=== PATIENT | male | born 1935 | race Two or more races ===

== ENCOUNTER 2016-07-28 13:24 | Observation (INO) | payer MEDICARE, MEDICAID ==
[2016-07-28] MEDS ORDERED: cefTRIAXone(*) 1 GM in NS 0.9% 50 ML* 50 ML IVPB ONE (14:09)
[2016-07-28] MEDS ORDERED: Acetaminophen TAB* 325 MG PO ONE (14:09)
[2016-07-28 14:21] LABS: Hematocrit 36 % (42-52); Hemoglobin 11.8 g/dl (14.0-18.0); Mean Corpuscular HGB Conc 32 g/dl (31-36); Mean Corpuscular Hemoglobin 27 pg (27-31); Mean Corpuscular Volume 82 fL (80-94); Mean Platelet Volume 8 um3 (7.4-10.4); Red Blood Count 4.43 10^6/ul (4.0-5.4); Red Cell Distribution Width 16 % (10.5-15)
[2016-07-28 14:26] LABS: Urine Bacteria Absent (Absent); Urine Bilirubin Negative (Negative); Urine Glucose Negative (Negative); Urine Nitrite Negative (Negative)
[2016-07-28 14:30] LABS: Albumin 3.8 g/dL (3.2-5.2); BUN/Creatinine Ratio 23.3 (8-20); Calcium 8.8 mg/dL (8.6-10.3); EGFR African American 66.2 (>60); EGFR Non-African American 51.5 (>60); Globulin 4.2 g/dL (2-4); Potassium 4.4 mmol/L (3.5-5.0); Total Bilirubin 0.7 mg/dL (0.2-1.0)
--- NOTE | 2016-07-28 14:30 | RAD ---
INDICATION: Fever and chills COMPARISON: None TECHNIQUE: An AP portable view obtained at 1416 hours is submitted. FINDINGS: Bones/Soft Tissues: There are no acute bony findings. Cardiomediastinal: The cardiomediastinal silhouette is normal. Lungs: There are no infiltrates. There is coarsening of interstitium which may reflect chronic change. There is no focal consolidation Pleura: There is biapical scarring with pleural plaques. Other: None IMPRESSION: CHRONIC LUNG FINDINGS WITH BIAPICAL SCARRING. SUGGEST FOLLOW-UP INDICATED
[2016-07-28 14:33] LABS: Troponin I 0.02 ng/mL (<0.04)
[2016-07-28] MEDS: NS 0.9% 1000 ML* 3,000 ML IV ONE ×3 (14:38→16:15)
[2016-07-28] MEDS ORDERED: NS 0.9% 1000 ML* 1,000 ML IV ONE (16:09)
[2016-07-28] MEDS ORDERED: Acetaminophen TAB* 325 MG PO PRN (16:18)
[2016-07-28] MEDS ORDERED: Ondansetron INJ* 2 MG/ML VIAL IV PRN (16:18)
--- NOTE | 2016-07-28 16:32 | ED ---
Rizwana Patino SooYoung, scribed for Vasyl Diop MD on 07/28/16 at 1354 . Complex/Multi-Sys Presentation - HPI Summary HPI Summary: An 80 y/o M JUAN presents to ED with c/o fever onset approx noon today. Associated sx: vomiting, chills, unable to ambulate. Denies: CP, SOB, sore throat, rhinorrhea, diarrhea. According to his , pt received an injection on his hands for osteoarthritis two days ago. He didn't feel well yesterday but no specific complaints. Pt did get a flu shot. Pt self-catherizes twice a day. Pt is on Coumadin for afib. Dr. Rodriguez is PCP. Micronesian is primary language, is helping translate. NKA. - History Of Current Complaint Chief Complaint: EDGeneral Time Seen by Provider: 07/28/16 13:44 Hx Obtained From: Patient, Family/Commercial Real Estate Sales Manager - Onset/Duration: Gradual Onset, Lasting Hours, Still Present Timing: Constant Severity Currently: Moderate Severity Initially: Moderate Associated Signs And Symptoms: Positive: Weakness, Vomiting, Other - pos: chills ; neg: rhinorrhea. Negative: SOB, Chest Pain, Diarrhea - Allergies/Home Medications Allergies/Adverse Reactions: Allergies Allergy/AdvReac Type Severity Reaction Status Date / Time No Known Allergies Allergy Verified 07/26/16 14:09 Home Medications: Home Medications Brimonidine/Timolol OPTH(NF) [Combigan OPHTH (NF)] 1 drop BOTH EYES DAILY [History Confirmed 07/28/16] Cholecalciferol TAB* [Vitamin D TAB*] 1,000 unit PO DAILY 07/28/16 [History Confirmed 07/28/16] Dexlansoprazole (NF) [Dexilant (NF)] 60 mg PO DAILY 07/28/16 [History Confirmed 07/28/16] Lactulose* 15 ml PO DAILY PRN 07/28/16 [History Confirmed 07/28/16] Levothyroxine TAB* [Synthroid TAB*] 25 mcg PO DAILY 07/28/16 [History Confirmed 07/28/16] Metoprolol Tartrate TAB* [Lopressor TAB*] 25 mg PO BID 07/28/16 [History Confirmed 07/28/16] Ratad-5-Zvop Ethyl Esters (NF) [Lovaza (NF)] 1 cap PO DAILY 07/28/16 [History Confirmed 07/28/16] Simvastatin [Zocor 5 MG-] 10 mg PO DAILY 07/28/16 [History Confirmed 07/28/16] Tamsulosin CAP* [Flomax CAP*] 0.4 mg PO DAILY 07/28/16 [History Confirmed ] PMH/Surg Hx/FS Hx/Imm Hx Previously Healthy: No Cardiovascular History: Reports: Hx Atrial Fibrillation - Cancer History Cancer Type, Location and Year: lymphoma Infectious Disease History: No Infectious Disease History: Denies: Traveled Outside the [place] in Last 30 Days - Social History Occupation: Retired Lives: With Family Alcohol Use: None Substance Use Type: Reports: None Hx Tobacco Use: No Smoking Status (MU): Never Smoked Tobacco Review of Systems Positive: Fever, Chills Negative: Sore Throat, Nasal Discharge Negative: Chest Pain Negative: Shortness Of Breath Positive: Vomiting. Negative: Diarrhea Positive: Weakness - unable to ambulate All Other Systems Reviewed And Are Negative: Yes Physical Exam - Summary Physical Exam Summary: The patient is well-nourished in no acute distress and in no acute pain. Skin: DECREASED TURGOR. NOT DIAPHORETIC, WARM TO TOUCH. HEENT: The head is normocephalic and atraumatic. The pupils are equal and reactive. The conjunctivae are clear and without drainage. Nares are patent. RHINORRHEA. ORAL MUCOSA DRY. Throat is without erythema and exudate. The external ears are intact. The ear canals are patent and without drainage. The tympanic membranes are intact. Neck is supple with full range of motion and non-tender. There are no carotid bruits. There is no neck vein distension. Respiratory: Chest is non-tender. Lungs are clear to auscultation and breath sounds are symmetrical and equal. Cardiovascular: Heart is regular rate and rhythm. There is no murmur or rub auscultated. There is no peripheral edema and pulses are symmetrical and equal. Abdomen: The abdomen is soft and non-tender. There are normal bowel sounds heard in all four quadrants and there is no organomegaly palpated. : CLOUDY, PUS-LIKE, URINE IN CATHETER Musculoskeletal: There is no back pain noted. Extremities are non-tender with full range of motion. 3 SEC CAPILLARY REFILL. There is no peripheral edema or calf tenderness elicited. WEAKNESS. UNABLE TO MAINTAIN SITTING UPRIGHT. Neurological: Patient is alert and oriented to person, place and time. The patient has symmetrical motor strength in all four extremities. Cranial nerves are grossly intact. Deep tendon reflexes are symmetrical and equal in all four extremities. Psychiatric: The patient has an appropriate affect and does not exhibit any anxiety or depression. Triage Information Reviewed: Yes Vital Signs On Initial Exam: Initial Vitals Temp Pulse Resp BP Pulse Ox 100.1 F 80 20 113/73 96 07/28/16 13:48 07/28/16 13:48 07/28/16 13:48 07/28/16 13:48 07/28/16 13:48 Vital Signs Reviewed: Yes Diagnostics - Vital Signs Vital Signs Temp Pulse Resp BP Pulse Ox 07/28/16 13:48 100.1 F 80 20 113/73 96 - Laboratory Lab Results: Lab Results 07/28/16 07/28/16 07/28/16 Range/Units 13:40 13:40 13:40 WBC 13.0 H (3.5-10.8) 10^3/ul RBC 4.43 (4.0-5.4) 10^6/ul Hgb 11.8 L (14.0-18.0) g/dl Hct 36 L (42-52) % MCV 82 (80-94) fL MCH 27 (27-31) pg MCHC 32 (31-36) g/dl RDW 16 H (10.5-15) % Plt Count 166 (150-450) 10^3/ul MPV 8 (7.4-10.4) um3 Neut % (Auto) 76.4 (38-83) % Lymph % (Auto) 13.1 L (25-47) % [place] % (Auto) 10.2 H (1-9) % Eos % (Auto) 0.2 (0-6) % Baso % (Auto) 0.1 (0-2) % Absolute Neuts (auto) 9.9 H (1.5-7.7) 10^3/ul Absolute Lymphs (auto) 1.7 (1.0-4.8) 10^3/ul Absolute Monos (auto) 1.3 H (0-0.8) 10^3/ul Absolute Eos (auto) 0 (0-0.6) 10^3/ul Absolute Basos (auto) 0 (0-0.2) 10^3/ul Absolute Nucleated RBC 0 10^3/ul Nucleated RBC % 0 ESR (0-40) mm/Hr INR (Anticoag Therapy) 2.12 H (0.89-1.11) APTT 30.4 (26.0-36.3) seconds Sodium (133-145) mmol/L Potassium (3.5-5.0) mmol/L Chloride (101-111) mmol/L Carbon Dioxide (22-32) mmol/L Anion Gap (2-11) mmol/L BUN (6-24) mg/dL Creatinine (0.67-1.17) mg/dL Est GFR ( Amer) (>60) Est GFR (Non-Af Amer) (>60) BUN/Creatinine Ratio (8-20) Glucose (70-100) mg/dL Lactic Acid (0.5-2.0) mmol/L Calcium (8.6-10.3) mg/dL Total Bilirubin (0.2-1.0) mg/dL AST (13-39) U/L ALT (7-52) U/L Alkaline Phosphatase (34-104) U/L Troponin I (<0.04) ng/mL B-Natriuretic Peptide ( - 100) pg/mL Total Protein (6.4-8.9) g/dL Albumin (3.2-5.2) g/dL Globulin (2-4) g/dL Albumin/Globulin Ratio (1-3) Urine Color Yellow Urine Appearance Turbid Urine pH 6.0 (5-9) Ur Specific [place] 1.012 (1.010-1.030) Urine Protein 2+(100 mg/dl) H (Negative) Urine Ketones Negative (Negative) Urine Blood 1+ H (Negative) Urine Nitrate Negative (Negative) Urine Bilirubin Negative (Negative) Urine Urobilinogen Negative (Negative) Ur Leukocyte Esterase 3+ H (Negative) Urine WBC (Auto) 3+(>20/hpf) H (Absent) Urine RBC (Auto) 2+(6-10/hpf) H (Absent) Urine Bacteria Absent (Absent) Urine Glucose Negative (Negative) Urine Ascorbic Acid * H (Negative) Influenza A (Rapid) (Negative) Influenza B (Rapid) (Negative) 07/28/16 07/28/16 07/28/16 Range/Units 13:40 13:40 13:40 WBC (3.5-10.8) 10^3/ul RBC (4.0-5.4) 10^6/ul Hgb (14.0-18.0) g/dl Hct (42-52) % MCV (80-94) fL MCH (27-31) pg MCHC (31-36) g/dl RDW (10.5-15) % Plt Count (150-450) 10^3/ul MPV (7.4-10.4) um3 Neut % (Auto) (38-83) % Lymph % (Auto) (25-47) % [place] % (Auto) (1-9) % Eos % (Auto) (0-6) % Baso % (Auto) (0-2) % Absolute Neuts (auto) (1.5-7.7) 10^3/ul Absolute Lymphs (auto) (1.0-4.8) 10^3/ul Absolute Monos (auto) (0-0.8) 10^3/ul Absolute Eos (auto) (0-0.6) 10^3/ul Absolute Basos (auto) (0-0.2) 10^3/ul Absolute Nucleated RBC 10^3/ul Nucleated RBC % ESR (0-40) mm/Hr INR (Anticoag Therapy) (0.89-1.11) APTT (26.0-36.3) seconds Sodium 128 L (133-145) mmol/L Potassium 4.4 (3.5-5.0) mmol/L Chloride 98 L (101-111) mmol/L Carbon Dioxide 25 (22-32) mmol/L Anion Gap 5 (2-11) mmol/L BUN 31 H (6-24) mg/dL Creatinine 1.33 H (0.67-1.17) mg/dL Est GFR ( Amer) 66.2 (>60) Est GFR (Non-Af Amer) 51.5 (>60) BUN/Creatinine Ratio 23.3 H (8-20) Glucose 124 H (70-100) mg/dL Lactic Acid 1.5 (0.5-2.0) mmol/L Calcium 8.8 (8.6-10.3) mg/dL Total Bilirubin 0.70 (0.2-1.0) mg/dL AST 18 (13-39) U/L ALT 16 (7-52) U/L Alkaline Phosphatase 61 (34-104) U/L Troponin I 0.02 (<0.04) ng/mL B-Natriuretic Peptide 318 H ( - 100) pg/mL Total Protein 8.0 (6.4-8.9) g/dL Albumin 3.8 (3.2-5.2) g/dL Globulin 4.2 H (2-4) g/dL Albumin/Globulin Ratio 0.9 L (1-3) Urine Color Urine Appearance Urine pH (5-9) Ur Specific [place] (1.010-1.030) Urine Protein (Negative) Urine Ketones (Negative) Urine Blood (Negative) Urine Nitrate (Negative) Urine Bilirubin (Negative) Urine Urobilinogen (Negative) Ur Leukocyte Esterase (Negative) Urine WBC (Auto) (Absent) Urine RBC (Auto) (Absent) Urine Bacteria (Absent) Urine Glucose (Negative) Urine Ascorbic Acid (Negative) Influenza A (Rapid) (Negative) Influenza B (Rapid) (Negative) 07/28/16 07/28/16 Range/Units 13:40 15:01 WBC (3.5-10.8) 10^3/ul RBC (4.0-5.4) 10^6/ul Hgb (14.0-18.0) g/dl Hct (42-52) % MCV (80-94) fL MCH (27-31) pg MCHC (31-36) g/dl RDW (10.5-15) % Plt Count (150-450) 10^3/ul MPV (7.4-10.4) um3 Neut % (Auto) (38-83) % Lymph % (Auto) (25-47) % [place] % (Auto) (1-9) % Eos % (Auto) (0-6) % Baso % (Auto) (0-2) % Absolute Neuts (auto) (1.5-7.7) 10^3/ul Absolute Lymphs (auto) (1.0-4.8) 10^3/ul Absolute Monos (auto) (0-0.8) 10^3/ul Absolute Eos (auto) (0-0.6) 10^3/ul Absolute Basos (auto) (0-0.2) 10^3/ul Absolute Nucleated RBC 10^3/ul Nucleated RBC % ESR 52 H (0-40) mm/Hr INR (Anticoag Therapy) (0.89-1.11) APTT (26.0-36.3) seconds Sodium (133-145) mmol/L Potassium (3.5-5.0) mmol/L Chloride (101-111) mmol/L Carbon Dioxide (22-32) mmol/L Anion Gap (2-11) mmol/L BUN (6-24) mg/dL Creatinine (0.67-1.17) mg/dL Est GFR ( Amer) (>60) Est GFR (Non-Af Amer) (>60) BUN/Creatinine Ratio (8-20) Glucose (70-100) mg/dL Lactic Acid (0.5-2.0) mmol/L Calcium (8.6-10.3) mg/dL Total Bilirubin (0.2-1.0) mg/dL AST (13-39) U/L ALT (7-52) U/L Alkaline Phosphatase (34-104) U/L Troponin I (<0.04) ng/mL B-Natriuretic Peptide ( - 100) pg/mL Total Protein (6.4-8.9) g/dL Albumin (3.2-5.2) g/dL Globulin (2-4) g/dL Albumin/Globulin Ratio (1-3) Urine Color Urine Appearance Urine pH (5-9) Ur Specific [place] (1.010-1.030) Urine Protein (Negative) Urine Ketones (Negative) Urine Blood (Negative) Urine Nitrate (Negative) Urine Bilirubin (Negative) Urine Urobilinogen (Negative) Ur Leukocyte Esterase (Negative) Urine WBC (Auto) (Absent) Urine RBC (Auto) (Absent) Urine Bacteria (Absent) Urine Glucose (Negative) Urine Ascorbic Acid (Negative) Influenza A (Rapid) Negative (Negative) Influenza B (Rapid) Negative (Negative) Result Diagrams: 07/28/16 13:40 07/28/16 13:40 Lab Statement: Any lab studies that have been ordered have been reviewed, and results considered in the medical decision making process. - Radiology CXR Xray Interpretation: Positive (See Comments) - IMPRESSION: Chronic lung findings with biapical scarring. Suggest f/u as indicated. Radiology Interpretation Completed By: Radiologist - EKG 1 EKG Rhythm: Atrial Fibrillation - with rates less than 100 Re-Evaluation - Re-Evaluation 1 Re-Evaluation Time: 15:06 Change: Unchanged Comment: Discussing results with pt. Second Eval Change: Worse - pt with decreased bp 84/P. will add additional normal saline. Complex Multi-Symp Course/Dx Course Of Treatment: MDM: Pt is a 80 y/o M presenting with fever, chills, vomiting, weakness onset approx noon today. Pt denies SOB, CP. Cloudy urine visible in catheter. UA positive for proteins, blood, WBC, RBC, leukocyte esterase. Trop was negative. CXR showed chronic lung findings with biapical scarring. Influenza A and B are negative. EKG shows afib with rates less than 100. Spoke with hospitalist, will see pt in ED. - Diagnoses Differential Diagnoses/HQI/PQRI: Sepsis, Urinary Tract Infection, Other - pneumonia, influenza, adverse drug reaction Provider Diagnoses: UTI (urinary tract infection), Fever - Physician Notifications Discussed Care Of Patient With: Dr. Coles, hospitalist Time Discussed With Above Provider: 15:14 Instructed by Provider To: Will See In ED Discharge - Discharge Plan Condition: Guarded Disposition: ADMITTED TO [facility] The documentation as recorded by the Rizwana amos SooYoung accurately reflects the service I personally performed and the decisions made by me, Vasyl Diop MD.
[2016-07-28] MEDS ORDERED: Warfarin TAB(*) 5 MG PO SCH (17:00)
--- NOTE | 2016-07-28 19:09 | HP ---
HOSPITAL MEDICINE HISTORY AND PHYSICAL: DATE OF ADMISSION: 07/28/16 PRIMARY CARE PHYSICIAN: Dr. Jean Baptiste. ATTENDING PHYSICIAN: Stuart Coles MD *(dictation provided by Mecca Smith NP) . CHIEF COMPLAINT: Nausea, vomiting, fever. HISTORY OF PRESENT ILLNESS: Mr. De León is an 80-year-old male who has a history of atrial fibrillation, lymphoma, and BPH requiring straight catheterization twice daily who presents today to the hospital with concern for nausea, vomiting, and fever. Mr. De León speaks Tam[place] but is somewhat limited with his primary language being Libyan. His ex- is at the bedside who lives in the same building as him and helps to care for him and she provides much of the information. Per the report, Mr. De León woke up this morning with no complaints. He had breakfast and shortly thereafter, he vomited. His ex- noted that he was shaking and quite cold with concern for rigors. She took his temperature and noted it to be 103. The patient continued to vomit " a lot" and he became very weak and could not walk. At that point, ex- called the emergency medical services that then brought him to the emergency room. Mr. De León states he feels comfortable at this time, but feels tired. He has no complaints. In the emergency room, Mr. De León is found to have urinalysis that was positive with 3+ leuk esterase. He has a white count of 13. His blood pressure is currently running systolically in the 90s with a second liter of IV fluids infusing.. PAST MEDICAL HISTORY: 1. Atrial fibrillation, on warfarin. 2. Lymphoma. 3. BPH, requiring straight catheterization b.i.d. 4. Osteoporosis. MEDICATIONS: 1. Brimonidine/timolol 1 drop both eyes daily. 2. Dexlansoprazole 60 mg p.o. daily. 3. Dutasteride 0.5 mg p.o. daily. 4. Glucosamine/chondroitin 500/400 mg p.o. daily. 5. Lactulose 15 mL p.o. daily p.r.n. 6. Metoprolol tartrate 25 mg p.o. b.i.d. 7. [place]-3 fatty acid 1 cap p.o. daily. 8. Simvastatin 10 mg p.o. daily. 9. Vitamin C 500 mg p.o. daily. 10. Cholecalciferol 1000 units p.o. daily. 11 Levothyroxine 25 mcg p.o. daily. 12. Tamsulosin 0.4 mg daily. 32. Warfarin 2.5 mg, alternating with 5 mg as directed. ALLERGIES: No known drug allergies. FAMILY HISTORY: Reports that the father related to stroke at age 70 and mother at 49 from breast cancer. He has a sister who of breast cancer and a brother who is alive and well at 88. SOCIAL HISTORY: No report of alcohol, tobacco, or drug use. The patient lives alone but his ex- lives in the same building and helps care for him. His son is his healthcare proxy whose name is Liliya De León. REVIEW OF SYSTEMS: A 14-point review of systems was completed with Mr. De León and all those not mentioned above were negative. PHYSICAL EXAMINATION GENERAL: Mr. De León is sitting in the bed, he is in no acute distress. He is calm and cooperative with my examination. VITAL SIGNS: Temperature 100.1, heart rate 83, respiratory rate 19, O2 saturation 93% on room air, blood pressure 97/67. LUNGS: Clear to auscultation bilaterally with no accessory muscle use and good aeration. HEART: S1, S2. No murmurs, rub, or gallop and regular. ABDOMEN: Soft, nontender with bowel sounds positive x4. EXTREMITIES: No cyanosis or edema. NEUROLOGIC: He is alert and oriented x3. There is a small amount language barrier due to his primary language being Libyan but he is able to converse with me today. He moves all extremities equally. There is no facial asymmetry or focal weakness. Extraocular movements are intact. SKIN: Intact. LABORATORY DATA: WBC 13.0, hemoglobin 11.8, hematocrit 36, platelet count 166. INR 2.12. Sodium 128, potassium 4.4, chloride 98, BUN 31, creatinine 1.33 , glucose 124, troponin 0.02. Urine shows 3+ leuk esterase but bacteria at this point absent. Flu swab is negative. Chest x-ray shows no acute process. EKG shows atrial fibrillation with heart rate of 100. ASSESSMENT: Mr. De León is an 80-year-old male with a past medical history of hypertension, atrial fibrillation and benign prostatic hypertrophy requiring straight catheterization who presents today to the hospital with concern for nausea, vomiting, fever, chills, and weakness, found to have a urinary tract infection. Plans are for inpatient status, as I expect his length of stay to be greater than 2 days for the followin. Urinary tract infection: The patient is somewhat hypotensive at this point , but the fluid resuscitation has just begun. The plan will be for him to receive at least 3 L of IV fluid in the emergency room and then go on to receive normal saline as indicated based on clinical course. The patient will have ceftriaxone for antibiotic coverage, pending urinary culture review. The patient's lactic acid is normal. I suspected he has urinary tract infections because of his benign prostatic hypertrophy and likely incomplete voiding. I would recommend that he follow up with Urology. 2. Atrial fibrillation: Plan to continue Coumadin, but will need to hold metoprolol in the setting of hypotension. 3. Hypothyroidism: Continue levothyroxine. 4. Acute kidney injury likely secondary to infection and dehydration. Plan is for IV fluids and repeat labs in the a.m. 5. DVT prophylaxis with Coumadin. 6. Code status: DNR. TIME SPENT: Approximately 60 minutes were spent on the admission of this patient, more than half the time spent with the patient and the ex- at the bedside reviewing the events leading up to this hospitalization, performing the physical examination, and reviewing the plan of care. MECCA SMITH NP CC: Dr. Jean Baptiste * [id number]/CPS #: [id number] JOSE
[2016-07-29] MEDS ORDERED: Melatonin (NF) 3 MG TAB PO PRN (01:25)
[2016-07-29] MEDS: NS 0.9% 1000 ML* 1,000 ML IV SCH ×2 (01:49→09:28)
[2016-07-29 06:24] LABS: Hematocrit 28 % (42-52); Hemoglobin 9.3 g/dl (14.0-18.0); Mean Corpuscular HGB Conc 33 g/dl (31-36); Mean Corpuscular Hemoglobin 27 pg (27-31); Mean Corpuscular Volume 82 fL (80-94); Mean Platelet Volume 9 um3 (7.4-10.4); Red Blood Count 3.38 10^6/ul (4.0-5.4); Red Cell Distribution Width 17 % (10.5-15); White Blood Count 10.7 10^3/ul (3.5-10.8)
[2016-07-29 06:38] LABS: BUN/Creatinine Ratio 21.1 (8-20); Calcium 7.3 mg/dL (8.6-10.3); EGFR African American 79.1 (>60); EGFR Non-African American 61.5 (>60); Potassium 3.6 mmol/L (3.5-5.0)
[2016-07-29] MEDS ORDERED: Levothyroxine TAB* 25 MCG TAB PO SCH (09:00)
[2016-07-29] MEDS ORDERED: Tamsulosin CAP* 0.4 MG PO SCH (09:00)
[2016-07-29] MEDS ORDERED: Warfarin TAB(*) 5 MG PO SCH (09:00)
[2016-07-29] MEDS ORDERED: Cholecalciferol TAB* 1000 UNITS PO SCH (09:00)
[2016-07-29 11:27] VITALS: BP 120/67
--- NOTE | 2016-07-29 11:30 | DCNOTE ---
Subjective Date of Service: 07/29/16 Interval History: Pt states he feels much better today. He is not very consistent in his history. He states he self-catheterizes twice daily, although he was instructed to osman it tid. He states yesterday he voided very frequently after self-catheterization--it is not clear if this is unusual or not. Objective Active Medications: Acetaminophen (Tylenol Tab*) 650 mg PO Q6H PRN PRN Reason: pain/fever Brimonidine/Timolol (Combigan Ophth (Nf)) 1 drop BOTH EYES DAILY [facility] PRN Reason: Protocol Cholecalciferol (Vitamin D Tab*) 1,000 units PO DAILY [facility] Last Admin: 07/29/16 07:07 Dose: 1,000 units Ceftriaxone Sodium 1,000 mg/ (Sodium Chloride) 50 mls @ 200 mls/hr IVPB Q24H [facility] Sodium Chloride (Ns 0.9% 1000 Ml*) 1,000 mls @ 125 mls/hr IV PER RATE [facility] Last Admin: 07/29/16 09:28 Dose: 125 mls/hr Levothyroxine Sodium (Synthroid Tab*) 25 mcg PO DAILY [facility] Last Admin: 07/29/16 07:07 Dose: 25 mcg Melatonin (Melatonin (Nf)) 3 mg PO BEDTIME PRN; Protocol PRN Reason: Sleep Last Admin: 07/29/16 02:32 Dose: 3 mg Ondansetron HCl (Zofran Inj*) 4 mg IV Q6H PRN PRN Reason: NAUSEA Tamsulosin HCl (Flomax Cap*) 0.4 mg PO DAILY [facility] Last Admin: 07/29/16 07:07 Dose: 0.4 mg Warfarin Sodium (Coumadin Tab(*)) 5 mg PO SUMOWESA@0900 [facility] PRN Reason: Protocol Last Admin: 07/29/16 09:50 Dose: 5 mg Warfarin Sodium (Coumadin Tab(*)) 2.5 mg PO TUTHSA@0900 [facility] PRN Reason: Protocol Vital Signs 07/28/16 07/28/16 07/28/16 16:08 16:30 17:00 Temperature Pulse Rate 79 80 Respiratory 18 13 Rate Blood Pressure 93/62 107/87 100/66 (mmHg) O2 Sat by Pulse 95 96 Oximetry 07/28/16 07/28/16 07/28/16 17:35 17:43 19:46 Temperature 97.4 F 97.6 F Pulse Rate 101 77 Respiratory 20 20 16 Rate Blood Pressure 116/59 104/64 (mmHg) O2 Sat by Pulse 95 98 Oximetry 07/28/16 07/28/16 07/28/16 19:49 20:11 23:46 Temperature Pulse Rate 66 73 Respiratory 20 17 Rate Blood Pressure 112/60 129/69 (mmHg) O2 Sat by Pulse 98 100 Oximetry 07/29/16 07/29/16 07:32 07:49 Temperature 98.5 F Pulse Rate 71 Respiratory 16 18 Rate Blood Pressure 105/60 (mmHg) O2 Sat by Pulse 97 Oximetry Oxygen Devices in Use Now: None Appearance: Alert, in a chair. In good spirits. Looks comfortable. Eyes: No Scleral Icterus Ears/Nose/Mouth/Throat: Clear Oropharnyx, Mucous Membranes Moist Neck: NL Appearance and Movements; NL JVP, No Thyroid Enlargement, Masses Respiratory: Symmetrical Chest Expansion and Respiratory Effort, Clear to Auscultation, Clear to Percussion Cardiovascular: NL Sounds; No Murmurs; No JVD, RRR, No Edema, - Extremities: No Edema, No Clubbing, Cyanosis, - Skin: No Rash or Ulcers, No Nodules or Sclerosis, - Neurological: Alert and Oriented x 3, NL Sensation - diminished hearing. No tremor. Result Diagrams: 07/29/16 05:28 07/29/16 05:28 Additional Lab and Data: Lab Results 07/28/16 07/28/16 07/28/16 Range/Units 13:40 13:40 13:40 WBC 13.0 H (3.5-10.8) 10^3/ul RBC 4.43 (4.0-5.4) 10^6/ul Hgb 11.8 L (14.0-18.0) g/dl Hct 36 L (42-52) % MCV 82 (80-94) fL MCH 27 (27-31) pg MCHC 32 (31-36) g/dl RDW 16 H (10.5-15) % Plt Count 166 (150-450) 10^3/ul MPV 8 (7.4-10.4) um3 Neut % (Auto) 76.4 (38-83) % Lymph % (Auto) 13.1 L (25-47) % Chaves % (Auto) 10.2 H (1-9) % Eos % (Auto) 0.2 (0-6) % Baso % (Auto) 0.1 (0-2) % Absolute Neuts (auto) 9.9 H (1.5-7.7) 10^3/ul Absolute Lymphs (auto) 1.7 (1.0-4.8) 10^3/ul Absolute Monos (auto) 1.3 H (0-0.8) 10^3/ul Absolute Eos (auto) 0 (0-0.6) 10^3/ul Absolute Basos (auto) 0 (0-0.2) 10^3/ul Absolute Nucleated RBC 0 10^3/ul Nucleated RBC % 0 ESR (0-40) mm/Hr INR (Anticoag Therapy) 2.12 H (0.89-1.11) APTT 30.4 (26.0-36.3) seconds Sodium (133-145) mmol/L Potassium (3.5-5.0) mmol/L Chloride (101-111) mmol/L Carbon Dioxide (22-32) mmol/L Anion Gap (2-11) mmol/L BUN (6-24) mg/dL Creatinine (0.67-1.17) mg/dL Est GFR ( Amer) (>60) Est GFR (Non-Af Amer) (>60) BUN/Creatinine Ratio (8-20) Glucose (70-100) mg/dL Lactic Acid (0.5-2.0) mmol/L Calcium (8.6-10.3) mg/dL Total Bilirubin (0.2-1.0) mg/dL AST (13-39) U/L ALT (7-52) U/L Alkaline Phosphatase (34-104) U/L Troponin I (<0.04) ng/mL B-Natriuretic Peptide ( - 100) pg/mL Total Protein (6.4-8.9) g/dL Albumin (3.2-5.2) g/dL Globulin (2-4) g/dL Albumin/Globulin Ratio (1-3) Urine Color Yellow Urine Appearance Turbid Urine pH 6.0 (5-9) Ur Specific Valentine 1.012 (1.010-1.030) Urine Protein 2+(100 mg/dl) H (Negative) Urine Ketones Negative (Negative) Urine Blood 1+ H (Negative) Urine Nitrate Negative (Negative) Urine Bilirubin Negative (Negative) Urine Urobilinogen Negative (Negative) Ur Leukocyte Esterase 3+ H (Negative) Urine WBC (Auto) 3+(>20/hpf) H (Absent) Urine RBC (Auto) 2+(6-10/hpf) H (Absent) Urine Bacteria Absent (Absent) Urine Glucose Negative (Negative) Urine Ascorbic Acid * H (Negative) Influenza A (Rapid) (Negative) Influenza B (Rapid) (Negative) 07/28/16 07/28/16 07/28/16 Range/Units 13:40 13:40 13:40 WBC (3.5-10.8) 10^3/ul RBC (4.0-5.4) 10^6/ul Hgb (14.0-18.0) g/dl Hct (42-52) % MCV (80-94) fL MCH (27-31) pg MCHC (31-36) g/dl RDW (10.5-15) % Plt Count (150-450) 10^3/ul MPV (7.4-10.4) um3 Neut % (Auto) (38-83) % Lymph % (Auto) (25-47) % Chaves % (Auto) (1-9) % Eos % (Auto) (0-6) % Baso % (Auto) (0-2) % Absolute Neuts (auto) (1.5-7.7) 10^3/ul Absolute Lymphs (auto) (1.0-4.8) 10^3/ul Absolute Monos (auto) (0-0.8) 10^3/ul Absolute Eos (auto) (0-0.6) 10^3/ul Absolute Basos (auto) (0-0.2) 10^3/ul Absolute Nucleated RBC 10^3/ul Nucleated RBC % ESR (0-40) mm/Hr INR (Anticoag Therapy) (0.89-1.11) APTT (26.0-36.3) seconds Sodium 128 L (133-145) mmol/L Potassium 4.4 (3.5-5.0) mmol/L Chloride 98 L (101-111) mmol/L Carbon Dioxide 25 (22-32) mmol/L Anion Gap 5 (2-11) mmol/L BUN 31 H (6-24) mg/dL Creatinine 1.33 H (0.67-1.17) mg/dL Est GFR ( Amer) 66.2 (>60) Est GFR (Non-Af Amer) 51.5 (>60) BUN/Creatinine Ratio 23.3 H (8-20) Glucose 124 H (70-100) mg/dL Lactic Acid 1.5 (0.5-2.0) mmol/L Calcium 8.8 (8.6-10.3) mg/dL Total Bilirubin 0.70 (0.2-1.0) mg/dL AST 18 (13-39) U/L ALT 16 (7-52) U/L Alkaline Phosphatase 61 (34-104) U/L Troponin I 0.02 (<0.04) ng/mL B-Natriuretic Peptide 318 H ( - 100) pg/mL Total Protein 8.0 (6.4-8.9) g/dL Albumin 3.8 (3.2-5.2) g/dL Globulin 4.2 H (2-4) g/dL Albumin/Globulin Ratio 0.9 L (1-3) Urine Color Urine Appearance Urine pH (5-9) Ur Specific Valentine (1.010-1.030) Urine Protein (Negative) Urine Ketones (Negative) Urine Blood (Negative) Urine Nitrate (Negative) Urine Bilirubin (Negative) Urine Urobilinogen (Negative) Ur Leukocyte Esterase (Negative) Urine WBC (Auto) (Absent) Urine RBC (Auto) (Absent) Urine Bacteria (Absent) Urine Glucose (Negative) Urine Ascorbic Acid (Negative) Influenza A (Rapid) (Negative) Influenza B (Rapid) (Negative) 07/28/16 07/28/16 Range/Units 13:40 15:01 WBC (3.5-10.8) 10^3/ul RBC (4.0-5.4) 10^6/ul Hgb (14.0-18.0) g/dl Hct (42-52) % MCV (80-94) fL MCH (27-31) pg MCHC (31-36) g/dl RDW (10.5-15) % Plt Count (150-450) 10^3/ul MPV (7.4-10.4) um3 Neut % (Auto) (38-83) % Lymph % (Auto) (25-47) % Chaves % (Auto) (1-9) % Eos % (Auto) (0-6) % Baso % (Auto) (0-2) % Absolute Neuts (auto) (1.5-7.7) 10^3/ul Absolute Lymphs (auto) (1.0-4.8) 10^3/ul Absolute Monos (auto) (0-0.8) 10^3/ul Absolute Eos (auto) (0-0.6) 10^3/ul Absolute Basos (auto) (0-0.2) 10^3/ul Absolute Nucleated RBC 10^3/ul Nucleated RBC % ESR 52 H (0-40) mm/Hr INR (Anticoag Therapy) (0.89-1.11) APTT (26.0-36.3) seconds Sodium (133-145) mmol/L Potassium (3.5-5.0) mmol/L Chloride (101-111) mmol/L Carbon Dioxide (22-32) mmol/L Anion Gap (2-11) mmol/L BUN (6-24) mg/dL Creatinine (0.67-1.17) mg/dL Est GFR ( Amer) (>60) Est GFR (Non-Af Amer) (>60) BUN/Creatinine Ratio (8-20) Glucose (70-100) mg/dL Lactic Acid (0.5-2.0) mmol/L Calcium (8.6-10.3) mg/dL Total Bilirubin (0.2-1.0) mg/dL AST (13-39) U/L ALT (7-52) U/L Alkaline Phosphatase (34-104) U/L Troponin I (<0.04) ng/mL B-Natriuretic Peptide ( - 100) pg/mL Total Protein (6.4-8.9) g/dL Albumin (3.2-5.2) g/dL Globulin (2-4) g/dL Albumin/Globulin Ratio (1-3) Urine Color Urine Appearance Urine pH (5-9) Ur Specific Valentine (1.010-1.030) Urine Protein (Negative) Urine Ketones (Negative) Urine Blood (Negative) Urine Nitrate (Negative) Urine Bilirubin (Negative) Urine Urobilinogen (Negative) Ur Leukocyte Esterase (Negative) Urine WBC (Auto) (Absent) Urine RBC (Auto) (Absent) Urine Bacteria (Absent) Urine Glucose (Negative) Urine Ascorbic Acid (Negative) Influenza A (Rapid) Negative (Negative) Influenza B (Rapid) Negative (Negative) Assess/Plan/Problems-Billing Assessment: - Patient Problems (1) UTI (urinary tract infection) Current Visit: Yes Status: Acute Comment: Clinically responding well to cefuroxime. Mcarthur removed this AM. I spoke with his who gave a complete and accurate history of his bladder problem. He always has a high residual often 500 ml,in the doctor's office. He refuses to self-ctheteriz more than bid. D/C with 6 days cefuroxime, referral to Urology. (2) Atrial fibrillation Current Visit: Yes Status: Acute Code(s): I48.91 - UNSPECIFIED ATRIAL FIBRILLATION SNOMED Code(s): 48786599 Comment: Rate controlled. INR 2.35. Repeat INR 3-[address] Jean Baptiste. (3) Hypothyroid Current Visit: Yes Status: Acute Code(s): E03.9 - HYPOTHYROIDISM, UNSPECIFIED SNOMED Code(s): 17127718 Comment: Clinically euthyroid. Continue levothyroxine. Fup Dr. Jones (4) TESS (acute kidney injury) Current Visit: Yes Status: Acute Code(s): N17.9 - ACUTE KIDNEY FAILURE, UNSPECIFIED SNOMED Code(s): 63128323 Comment: Resolved. Status and Disposition: Discharge Fup Dr. Koo, Urology.
[2016-07-29] MEDS ORDERED: cefTRIAXone VIAL(*) 1,000 MG in NS 0.9% 50 ML* 50 ML IVPB SCH (14:00)
--- NOTE | 2016-07-30 02:09 | DS ---
DISCHARGE SUMMARY: DATE OF ADMISSION: DATE OF DISCHARGE: 07/29/16 HISTORY OF PRESENT ILLNESS: This 80-year-old man came complaining of nausea, vomiting, and fever. I am not sure how reliable historian he is. His was not present the morning and had no phone number available to call her. Apparently, his temperature is 103 at home. The patient had a significant amount of emesis, who was found to have a urinary tract infection and dehydration. He was given intravenous fluids and ceftriaxone. He did quite well and felt much better the next day, his acute kidney injury resolved. His white count fell from 13 to 10. He became afebrile. Clinically he looked quite well. Physical therapy saw him and felt he was at his baseline. At home, he will take cefuroxime 500 mg b.i.d. for 6 days. Postvoid residual by bladder scan is pending at this time. This will be noted on the chart when it is available. He has a referral to [facility] and will follow up with Dr. Jean Baptiste. I note that his INR was 2.35. On arrival here we will continue on all his other medications as before. As he is now on an antibiotics we will have him recheck his INR in 3 to 4 days as an outpatient. CC: Dr. Jean Baptiste; Dr. Garcia* [id number]/[facility] #: [id number] MTDD
[2016-07-30] MEDS ORDERED: Brimonidine/Timolol 0.2%/0.5% OPTH(NF) SOL 5 ML BOTH EYES SCH (09:00)
[2016-07-30] MEDS ORDERED: Warfarin TAB(*) 2.5 MG PO SCH ×3 (09:00→17:00)
== END 2016-07-29 13:15 | disposition home or self-care (01) ==
LOC: ED 13:24 → MED 16:05
PROVIDERS: ADMIT Internal Medicine; ATTEND Internal Medicine
DX: N39.0 Urinary tract infection, site not specified (principal); E86.0 Dehydration; I48.91 Unspecified atrial fibrillation; Z79.01 Long term (current) use of anticoagulants; M81.0 Age-related osteoporosis without current pathological fracture; N17.9 Acute kidney failure, unspecified; E03.9 Hypothyroidism, unspecified
CPT/HCPCS: 36415; 71010; 80048; 80053; 81003; 81015; 83605; 83880; 84484; 85025; 85610; 85652; 85730; 87077; 87086; 87186; 87502; 93005; 96365; 96375; 99283; A9270-GY; G0378; G8978-GP-CH; G8979-GP-CH; G8980-GP-CH; J0696

== ENCOUNTER 2017-10-16 14:07 | Inpatient (IN) | payer MEDICARE, MEDICAID ==
[2017-10-16 14:44] LABS: ABS Basophils 0 10^3/ul (0-0.2); ABS Eosinophils 0 10^3/ul (0-0.6); ABS Lymphocytes 1.6 10^3/ul (1.0-4.8); ABS Monocytes 1.1 10^3/ul (0-0.8); ABS Neutrophils 7.2 10^3/ul (1.5-7.7); ABS Nucleated RBC 0 10^3/ul; Eosinophil % 0.4 % (0-6); Hematocrit 30 % (42-52); Hemoglobin 10.4 g/dl (14.0-18.0); Lymphocyte % 15.9 % (25-47); Mean Corpuscular HGB Conc 34 g/dl (31-36); Mean Corpuscular Hemoglobin 29 pg (27-31); Mean Corpuscular Volume 83 fL (80-94); Mean Platelet Volume 7.4 um3 (7.4-10.4); Nucleated Red Blood Cells % 0; Platelet Count 210 10^3/ul (150-450); Red Blood Count 3.65 10^6/ul (4.0-5.4); Red Cell Distribution Width 15 % (10.5-15); White Blood Count 9.9 10^3/ul (3.5-10.8)
[2017-10-16 15:00] LABS: EGFR Non-African American 56.2 (>60)
[2017-10-16 15:40] LABS: Urine Appearance Turbid; Urine Blood 1+ (Negative); Urine Color Yellow; Urine Ketones Negative (Negative); Urine Protein 1+(30 mg/dL) (Negative); Urine Specific Gravity 1.011 (1.010-1.030); Urine Urobilinogen Negative (Negative)
[2017-10-16] MEDS ORDERED: cefTRIAXone(*) 1 GM in NS 0.9% 50 ML* 50 ML IVPB ONE (16:26)
[2017-10-16] MEDS: NS 0.9% 1000 ML* 2,000 ML IV ONE ×2 (16:35→18:23)
[2017-10-16] MEDS ORDERED: Acetaminophen TAB* 325 MG PO ONE (16:41)
[2017-10-16] MEDS ORDERED: Magnesium Sulfate 2 GM IV* 2 GM/50 ML BAG IVPB ONE (16:50)
[2017-10-16] MEDS ORDERED: Lactulose* 15 ML UDC PO PRN (17:11)
--- NOTE | 2017-10-16 17:19 | RAD ---
Indication: Sepsis. Single frontal view of the chest performed at 1653 hours was reviewed. Comparison is made with previous exam dated July 28, 2016. Cardiomegaly is noted. Interstitial edema consistent with vascular congestion is noted. No pleural fluid is identified. IMPRESSION: CARDIOMEGALY WITH INTERSTITIAL EDEMA CONSISTENT WITH VASCULAR CONGESTION.
[2017-10-16] MEDS: Apixaban* 5 MG TAB PO SCH (23:29)
[2017-10-16] MEDS: Cyclosporine 0.05% OPHTH (NF) 0.4 ML VIAL BOTH EYES SCH (23:29)
[2017-10-16] MEDS: PTO:Brimonidine/Timolol 0.2%/0.5% OPTH(NF) SOL 5 ML BOTH EYES SCH (23:29)
[2017-10-16] MEDS: Zolpidem TAB* 5 MG PO PRN (23:31)
--- NOTE | 2017-10-17 00:40 | HP ---
HISTORY AND PHYSICAL: DATE OF ADMISSION: 10/16/17 ADMITTING PROVIDER: Hoang Merrill MD PRIMARY CARE PHYSICIAN: Dr. Jean Baptiste. OUTPATIENT HAND FORMER: Dr. Street. OUTPATIENT HEALTH INSPECTOR FOOD: Dr. Mittal. OUTPATIENT UROLOGIST: Dr. Simmons. CHIEF COMPLAINT: Weakness causing a supported to ground fall. HISTORY OF PRESENT ILLNESS: Rajiv De León is an 81-year-old male PMH of chronic atrial fibrillation on Eliquis; lymphoma approximately 5 years ago, status post treatment; BPH, requiring straight catheterization 3 times daily and intermittent procedures with Dr. Simmons every 3 months, last 2 weeks ago; osteoporosis; moderate aortic stenosis; moderate coronary artery disease, January 2017; recently diagnosed chronic hypoxic respiratory failure with concern for possible pulmonary fibrosis secondary to asbestosis exposure, recently prescribed 2 L nasal cannula by Dr. Mittal. He was in his normal state of health, had been out shopping when he could not open the door and get out of the car unassisted. He was accompanied by his ex- who helped him to the door, but he eventually slumped over and was assisted to the ground. [facility] was called and he was noted to have fevers of 102. He had a urinalysis that was suspicious for a possible urinary tract infections for which he gets frequently. He was referred to hospitalist service for admission by sepsis-2 criteria and after emergency room called Dr. Simmons. He was noted to have an echo-cardiogram approximately [address] Street and is scheduled followup soon, but has not heard any results from that. In the emergency room, he was also intermittently or continuous atrial fibrillation and heart rates max were 114, blood pressures have been preserved. A Mcarthur has been placed and ceftriaxone was started. He was given 2 L of normal saline for sepsis bolus. His lactic acid was normal at 1.2. He was on 4 L satting high 90s. PAST MEDICAL HISTORY: 1. Chronic atrial fibrillation, on Eliquis. 2. Lymphoma, status post treatment approximately 4 to 5 years ago. 3. BPH, requiring straight catheterizations 3 times a day. 4. Osteoporosis. 5. Moderate aortic valve stenosis. 6. Moderate coronary artery disease, no stents, January 2017. 7. recently diagnosed chronic hypoxic respiratory failure, Concern for possible pulmonary fibrosis secondary to asbestosis exposure, who is now being prescribed 2 L nasal cannula by Dr. Mittal within the last month. MEDICATIONS: 1. Amlodipine 2.5 mg daily. 2. Restasis 1 drop both eyes b.i.d. 3. Ambien 5 mg p.o. at bedtime p.r.n. 4. Flomax 0.4 mg p.o. daily. 5. Simvastatin 10 mg p.o. daily. 6. Metoprolol succinate 50 mg p.o. daily. 7. Synthroid 50 mcg p.o. daily. 8. Lactulose 15 mL p.o. daily p.r.n. 9. Glucosamine 1 capsule p.o. daily. 10. Avodart (dutasteride) 0.5 mg p.o. daily. 11. Combigan ophthalmic OM drop both eyes b.i.d. 12. Eliquis 5 mg p.o. daily. 13. Cholecalciferol 1000 units p.o. daily. ALLERGIES: No known drug allergies. FAMILY HISTORY: Father of stroke at age 70. Mother at 49 with breast cancer. Sister of breast cancer. 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 He is accompanied by his ex-, who lives in an apartment across away from his own in the same building. He is a never smoker. He denies significant alcohol use or drug use. His medical surrogate is his son, Tiara De León. REVIEW OF SYSTEMS: A complete 14-point review systems is negative except as per HPI. Denies any chest pain, shortness of breath, abdominal pain, headaches , vision changes, diarrhea, or constipation. He denies any problems with straight catheterizations or dysuria. PHYSICAL EXAMINATION GENERAL APPEARANCE: No acute distress. VITAL SIGNS: T-max 102.3, heart rate ranged between 70s and 114, respiratory rate 20 to 24, satting 98% to 100% on 4 L nasal cannula, blood pressure is 146/ 82. HEENT: Normocephalic, atraumatic. Pupils are equal, round and reactive to light. Extraocular motions intact. No scleral icterus. NECK: Supple. No cervical lymphadenopathy. LUNGS: Slight rhonchi or rales at the right base. No wheezing. CARDIOVASCULAR: Irregularly irregular, rate controlled, 3/6 holosystolic ejection murmur, loudest at the left lower sternal border with blowing quality. No rubs or gallops. ABDOMEN: Soft, nontender, and nondistended. EXTREMITIES: Warm and well perfused. No peripheral edema. NEURO: Cranial nerves II through XII intact. Shake Backboard Notcher strength intact. Sensation is intact. SKIN: No lesion or rashes. LABORATORY DATA: White count 9.9, hemoglobin 10.4, hematocrit 30, platelets 210. Sodium 130, potassium 4.2, chloride 98, carbon dioxide 25, BUN 25, creatinine 1.23, glucose 151, lactic acid 1.2, magnesium 1.7. Total bili 0.5, AST 13, ALT 11, alk phos 42. Troponin 0.01. Albumin 3.5. TSH 1.64. Urinalysis , protein 1+, blood 1+, leukocyte esterase 3+, white count 3+. IMAGING: Chest x-ray demonstrated cardiomegaly with interstitial edema consistent with vascular congestion. EKG with atrial fibrillation, right bundle-branch block, Q-waves inferiorly in II and III. No ST elevations or depressions. T-wave inversions in aVL. ASSESSMENT AND PLAN: Rajiv De León is an 81-year-old male with past medical history of chronic atrial fibrillation, on Eliquis; moderate aortic stenosis in January 2017; benign prostatic hyperplasia, requiring 3 times daily straight catheterizations with history of urinary tract infections, who is admitted with fevers of 102, intermittent tachycardia (related to atrial fibrillation), and generalized weakness resulting in assisted fall. He also has hypoxic respiratory failure developing over the last month, follows up with Dr. Mittal, concern for pulmonary fibrosis or asbestosis. He had a CT chest just 10 days ago, which showed stable nodules 12-mm in the right upper lobe and 7-mm in the right medial lobe. Dr. Simmons was consulted by the ED and recommended admission. Ceftriaxone was started and we will continue that. We will follow up with the urine culture, followed up blood cultures. He meets sepsis by sepsis-2 criteria, but not sepsis-3 criteria. I am concerned about his worsening shortness of breath and in comparison on review his med and records, his echocardiogram showed worsening aortic valve area of 1.0 (Jan 2017) from 2.1 (March 2016). I am concerned his aortic stenosis may now have worsened further. A BNP was added. His chest x-ray did show evidence of pulmonary vascular congestion and had some slight rales at the right lower base. Consideration for small doses of Lasix, I am going to hold off for now. I am going to continue his Eliquis 5 mg p.o. b.i.d., status post sepsis bolus in the emergency room and continue his metoprolol succinate 50 mg p.o. daily for rate control. His blood pressures are preserved. I will continue his Flomax and Avodart (if on formulary). Continue his Ambien. I gave him 2 g of magnesium and keep his potassium also above 4. He slumps with a slight hyponatremia may be related to a volume overload. I will get BMP and mag daily along with CBC. He has no lactic acidosis. He desires to be a DNR. His medical surrogate is his son, Tiara De León. He is being admitted as inpatient status. [id number]/[facility] #: [id number] MTDD
[2017-10-17] MEDS: Levothyroxine TAB* 50 MCG TAB PO SCH (05:35)
[2017-10-17 05:47] LABS: Hematocrit 31 % (42-52); Hemoglobin 10.2 g/dl (14.0-18.0); Mean Corpuscular HGB Conc 34 g/dl (31-36); Mean Corpuscular Hemoglobin 28 pg (27-31); Mean Corpuscular Volume 83 fL (80-94); Mean Platelet Volume 7.6 um3 (7.4-10.4); Platelet Count 201 10^3/ul (150-450); Red Blood Count 3.66 10^6/ul (4.0-5.4); Red Cell Distribution Width 15 % (10.5-15); White Blood Count 15.2 10^3/ul (3.5-10.8)
[2017-10-17 06:09] LABS: Monocytes % 9 % (0-7)
[2017-10-17] MEDS ORDERED: Potassium Chlor TAB* 20 MEQ TAB.ER PO ONE (08:16)
[2017-10-17] MEDS: Finasteride TAB* 5 MG PO SCH (08:37)
[2017-10-17] MEDS: Cholecalciferol TAB* 1000 UNITS PO SCH (08:37)
[2017-10-17] MEDS: Apixaban* 5 MG TAB PO SCH ×2 (08:37→20:42)
[2017-10-17] MEDS: Tamsulosin CAP* 0.4 MG PO SCH (08:37)
[2017-10-17] MEDS: Metoprolol Succinate XL TAB* 50 MG PO SCH (08:37)
[2017-10-17] MEDS: Cyclosporine 0.05% OPHTH (NF) 0.4 ML VIAL BOTH EYES SCH (09:16)
[2017-10-17] MEDS: GLUCOSAMINE PO SCH (09:16)
[2017-10-17] MEDS: PTO:Brimonidine/Timolol 0.2%/0.5% OPTH(NF) SOL 5 ML BOTH EYES SCH ×2 (09:16→20:42)
--- NOTE | 2017-10-17 12:47 | ECHO ---
Patient: YAMINI AMBROSE [facility] Rec#: [id number] : 1935 Date: 10/17/2017 Age: 81y Height: 167.64 cm / 66.0 in Weight: 70.76 kg / 156.0 lbs Sex: M BSA: 1.8 Room#: 432 Admit Date#: 10/16/2017 Type: Inpatient Referring: Hoang Merrill Reading: Kuldip Rubin MD Supervisor Floor Assembly: Do Case RDCS CC: Lucio Street CC: Nini Jean Baptiste MD Transthoracic Echocardiogram Indication: Aortic Stenosis BP: 101/58 HR: 71 Rhythm: NSR with PACs Findings History: A-fib,lymphoma with prior treatment,BPH,,CAD,3/6 holosystolic murmur. Technical Comments: The study is technically limited due to patient body habitus. Completed at 1040. Left Ventricle: The left ventricular chamber size is normal. Septal wall hypertrophy is observed. Global left ventricular wall motion and contractility are within normal limits. There is normal left ventricular systolic function. The estimated ejection fraction is 55-60%. The assessment of diastolic function is non-diagnostic. Left Atrium: The left atrium is moderate to severely dilated. Right Ventricle: The right ventricular cavity size is normal. The right ventricular global systolic function is normal. Right Atrium: The right atrium is moderate to severely dilated. Aortic Valve: The aortic valve is trileaflet. The aortic valve leaflets are moderately thickened. Systolic excursion of the aortic valve cusps is reduced. Moderate aortic cusp sclerosis is present. There is no evidence of aortic regurgitation. There is moderate aortic stenosis. Highest aortic valve velocity was acquired with Pedoff in apical position. Mitral Valve: There is anterior mitral annular calcification. The mitral valve leaflets are severely thickened. There is mild to moderate mitral regurgitation. There is no evidence of mitral stenosis. The mitral valve area, by pressure half time, is calculated at 3.2 cm2. Tricuspid Valve: The tricuspid valve leaflets are normal. There is mild to moderate tricuspid regurgitation. There is evidence of moderate pulmonary hypertension. Pulmonic Valve: The pulmonic valve appears normal. There is no evidence of pulmonic regurgitation. There is no pulmonic stenosis. Pericardium: There is no significant pericardial effusion. A pericardial fat pad is visualized. Aorta: There is no dilatation of the ascending aorta. The aortic arch is not well visualized. There is no dilation of the aortic root. Pulmonary Artery: The main pulmonary artery is not well visualized. Venous: The inferior vena cava appears normal in size. There is an approximate 50% respiratory change in the inferior vena cava dimension. Conclusions There is normal left ventricular systolic function. The estimated ejection fraction is 55-60%. Global left ventricular wall motion and contractility are within normal limits. The left ventricular chamber size is normal. The left atrium is moderate to severely dilated. The right atrium is moderate to severely dilated. There is moderate aortic stenosis. There is mild to moderate mitral regurgitation. There is mild to moderate tricuspid regurgitation. There is evidence of moderate pulmonary hypertension. There is no prior echocardiogram available to compare with at this time. Measurements Name Value Normal Range RVIDd (AP) 2D 3.4 cm (0.9 - 2.6) RVDdMajor (2D) 4.1 cm (2.2 - 4.4) RAd ISD 4CH 6.5 cm (3.4 - 4.9) RA (A4C)W 5 cm (2.9 - 4.6) IVSd (2D) 1.2 cm (0.6 - 1) LVPWd (2D) 1 cm (0.6 - 1) LVIDd (2D) 4.8 cm (3.6 - 5.4) LVIDs (2D) 3 cm - LV FS (2D) 37 % (25 - 45) Aortic Annulus 1.7 cm (1.4 - 2.6) Ao root diameter (2D) 3.2 cm (2.1 - 3.5) Ascending Ao 3.1 cm (2.1 - 3.4) LA dimension (AP) 2D 5.2 cm (2.3 - 3.8) Name Value Normal Range MV E-wave Vmax 2.1 m/sec - MV deceleration time 254 msec - MV A-wave Vmax 1.1 m/sec - MV E:A ratio 1.85 ratio - LV septal e' Vmax 0.05 m/sec - LV lateral e' Vmax 0.05 m/sec - LV E:e' septal ratio 42 ratio - LV E:e' lateral ratio 42 ratio - Name Value Normal Range AV Vmax 3.8 m/sec - AV VTI 76.3 cm - AV peak gradient 58.9 mmHg - AV mean gradient 28.6 mmHg - LVOT diameter 1.8 cm - LVOT Vmax 1.2 m/sec - LVOT VTI 29.2 cm - LVOT peak gradient 6.19 mmHg - LVOT mean gradient 3.02 mmHg - SV LVOT 74 ml - KHURRAM (continuity VTI) 1 cm2 - Name Value Normal Range MV Vmax 2.1 m/sec - MV VTI 60.5 cm - MV peak gradient 17.67 mmHg - MV mean gradient 3.92 mmHg - MV PHT 68 msec - MR Vmax 3.3 m/sec - MR VTI 106.4 cm - MVA (PHT) 3.2 cm2 - MVA (continuity VTI) 1.2 cm2 - Name Value Normal Range TR Vmax 3.4 m/sec - TR peak gradient 45 mmHg - RAP 8 mmHg - RVSP 53 mmHg - IVC diameter 2 cm - Name Value Normal Range PV Vmax 1 m/sec - PV peak gradient 3.91 mmHg -
[2017-10-17] MEDS ORDERED: cefTRIAXone(*) 1 GM in NS 0.9% 50 ML* 50 ML IVPB SCH (16:00)
[2017-10-17] MEDS: Atorvastatin* 10 MG TAB PO SCH (17:06)
--- NOTE | 2017-10-17 18:44 | PN ---
Subjective Date of Service: 10/17/17 Interval History: ECHO with moderate(stable) ; EF 55-60% Klebsiella on UCX >100K Afebrile. HDS. Leukocytosis worse. worked with PT. 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 Objective Active Medications: Apixaban (Eliquis*) 5 mg PO BID [facility] Last Admin: 10/17/17 08:37 Dose: 5 mg Atorvastatin Calcium (Lipitor*) 5 mg PO 1700 [facility] Last Admin: 10/17/17 17:06 Dose: 5 mg Brimonidine/Timolol (Combigan Ophth (Nf)) 1 drop BOTH EYES BID DEA PRN Reason: Protocol Last Admin: 10/17/17 09:16 Dose: Not Given Cholecalciferol (Vitamin D Tab*) 1,000 units PO DAILY [facility] Last Admin: 10/17/17 08:37 Dose: 1,000 units Cyclosporine (Restasis 0.05% Ophth) 1 drop BOTH EYES BID DEA PRN Reason: Protocol Finasteride (Proscar Tab*) 5 mg PO DAILY DEA PRN Reason: Protocol Last Admin: 10/17/17 08:37 Dose: 5 mg Glucosamine Sulfate (Glucosamine Cap (Nf)) 1 cap PO DAILY DEA PRN Reason: Protocol Last Admin: 10/17/17 09:16 Dose: Not Given Ceftriaxone Sodium 1 gm/ (Sodium Chloride) 50 mls @ 200 mls/hr IVPB Q24H [facility] Last Admin: 10/17/17 16:12 Dose: 200 mls/hr Lactulose (Lactulose*) 15 ml PO DAILY PRN PRN Reason: CONSTIPATION Levothyroxine Sodium (Synthroid Tab*) 50 mcg PO 0600 [facility] Last Admin: 10/17/17 05:35 Dose: 50 mcg Metoprolol Succinate (Toprol Xl Tab*) 50 mg PO DAILY [facility] Last Admin: 10/17/17 08:37 Dose: 50 mg Tamsulosin HCl (Flomax Cap*) 0.4 mg PO DAILY [facility] Last Admin: 10/17/17 08:37 Dose: 0.4 mg Zolpidem Tartrate (Ambien Tab*) 5 mg PO BEDTIME PRN PRN Reason: SLEEP Last Admin: 10/16/17 23:31 Dose: 5 mg Vital Signs - 8 hr 10/17/17 10/17/17 11:19 15:48 Temperature 98.2 F 98.7 F Pulse Rate 76 69 Respiratory 16 24 Rate Blood Pressure 106/53 119/57 (mmHg) O2 Sat by Pulse 96 96 Oximetry Oxygen Devices in Use Now: Nasal Cannula Appearance: NAD, tired appearing. Eyes: No Scleral Icterus, PERRLA Ears/Nose/Mouth/Throat: NL Teeth, Lips, Gums, Mucous Membranes Moist Neck: NL Appearance and Movements; NL JVP Respiratory: Symmetrical Chest Expansion and Respiratory Effort, Clear to Auscultation Cardiovascular: RRR, - - 3/6 DOMINIQUE, s1 s2. Abdominal: NL Sounds; No Tenderness; No Distention Extremities: No Edema, No Clubbing, Cyanosis Skin: No Rash or Ulcers Neurological: Alert and Oriented x 3 Nutrition: Taking PO's Result Diagrams: 10/17/17 05:25 10/17/17 05:25 Additional Lab and Data: Laboratory Results - last 24 hr 10/17/17 10/17/17 05:25 05:25 WBC 15.2 H RBC 3.66 L Hgb 10.2 L Hct 31 L MCV 83 MCH 28 MCHC 34 RDW 15 Plt Count 201 MPV 7.6 Neut % (Auto) Not Reportable Lymph % (Auto) Not Reportable [place] % (Auto) Not Reportable Eos % (Auto) Not Reportable Baso % (Auto) Not Reportable Absolute Neuts (auto) Not Reportable Absolute Lymphs (auto) Not Reportable Absolute Monos (auto) Not Reportable Absolute Eos (auto) Not Reportable Absolute Basos (auto) Not Reportable Absolute Nucleated RBC Not Reportable Immature Gran % 3 Neutrophils % 80 Band Neutrophils % 2 Lymphocytes % 8 L Monocytes % 9 H Eosinophils % 0 Basophils % 0 Myelocytes % 1 Nucleated RBC % Not Reportable Abs Neuts (Manual) 12.2 H Abs Lymphs (Manual) 1.2 Abs Monocytes (Manual) 1.4 H Absolute Eos (Manual) 0 Abs Basophils (Manual) 0 Toxic Granulation 1+ Normal RBC Morphology Normal Sodium 129 L Potassium 3.8 Chloride 103 Carbon Dioxide 23 Anion Gap 3 BUN 18 Creatinine 1.03 Est GFR ( Amer) 88.7 Est GFR (Non-Af Amer) 69.0 BUN/Creatinine Ratio 17.5 Glucose 126 H Calcium 8.3 L Magnesium 2.1 Assess/Plan/Problems-Billing Assessment: 81 yo [place]an speaking male PMH moderate , recent chronic hypoxic respiratory failure thought 2/2 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 CFTX -> Zosyn. - Patient Problems (1) UTI (urinary tract infection) Current Visit: No Status: Acute Comment: has been self cathing TID and getting intermittent procedures with Dr. Simmons. Mcarthur placed in ED. Started empiricaly on CFTX but Klebsiella pna on UCx which can have inducible beta-lactam resistance. Also WBC up. Switched to zosyn. f/u sensitivities. (2) Aortic stenosis Current Visit: Yes Status: Acute Code(s): I35.0 - NONRHEUMATIC AORTIC (VALVE ) STENOSIS SNOMED Code(s): 39173729 Comment: still rated as moderate on ECHO here. (3) CHF (congestive heart failure) Current Visit: Yes Status: Acute Code(s): I50.9 - HEART FAILURE, UNSPECIFIED SNOMED Code(s): 28553303 Comment: did get some IVF bolus in ED. BNP 541. EF 55-60% , mild-mod mVR, TVT. mod pHTN started lasix 20mg po daily for likely few days. (4) Hyponatremia Current Visit: Yes Status: Acute Code(s): E87.1 - HYPO-OSMOLALITY AND HYPONATREMIA SNOMED Code(s): 86879386 Comment: chronically ~130 range it seems. tsh wnl. Uosm, Valery, FeNa, uric acid , cortisol pending BMP daily. (5) Physical deconditioning Current Visit: Yes Status: Acute Code(s): R53.81 - OTHER MALAISE SNOMED Code(s): 29095453420473 Comment: continue PT. (6) Atrial fibrillation Current Visit: No Status: Acute Code(s): I48.91 - UNSPECIFIED ATRIAL FIBRILLATION SNOMED Code(s): 80323800 Comment: Rate controlled. on Eliquis. metoprolol 50 daily. (7) Hypothyroid Current Visit: No Status: Acute Code(s): E03.9 - HYPOTHYROIDISM, UNSPECIFIED SNOMED Code(s): 89294749 Comment: Clinically euthyroid. Continue levothyroxine. Status and Disposition: medicine inpatient.
--- NOTE | 2017-10-17 19:03 | ED ---
Theodora Patino Gabriel, scribed for Anshu Cueto MD on 10/16/17 at 1508 . Complex/Multi-Sys Presentation - HPI Summary HPI Summary: This patient is a 81 year old M BIBA to [facility] accompanied by his with a chief complaint of weakness that began mid-day today. Pts states while they were shopping today he was unable to walk to the store due to the weakness. The patient rates the pain 0/10 in severity. Patient reports fever of 102F, trouble ambulating, and trouble urinating. Patient denies cough, n/v/d, and back pain. The patient catheterizes himself 3 times a day to urinate. Pt has just seen Dr. Simmons for prostate issues. - History Of Current Complaint Chief Complaint: EDWeakness Time Seen by Provider: 10/16/17 14:15 Hx Obtained From: Patient Onset/Duration: Lasting Hours, Still Present Timing: Constant Severity Currently: Moderate Severity Initially: Moderate Associated Signs And Symptoms: Positive: Other - fever of 102F, weakness, trouble ambulating, and trouble urinating. - Allergies/Home Medications Allergies/Adverse Reactions: Allergies Allergy/AdvReac Type Severity Reaction Status Date / Time No Known Allergies Allergy Verified 07/26/16 14:09 Home Medications: Home Medications Apixaban* [Eliquis*] 5 mg PO BID 10/16/17 [History Confirmed 10/16/17] Cyclosporine 0.05% OPHTH (NF) [Restasis 0.05% OPHTH] 1 drop BOTH EYES BID [History Confirmed 10/16/17] Dutasteride (NF) [Avodart (NF)] 0.5 mg PO DAILY 10/16/17 [History Confirmed ] Glucosamine CAP (NF) 1 cap PO DAILY 10/16/17 [History Confirmed 10/16/17] Metoprolol Succinate XL TAB* [Toprol XL TAB*] 50 mg PO DAILY 10/16/17 [History Confirmed 10/16/17] Simvastatin TAB(NF) [Zocor(NF)] 10 mg PO DAILY 10/16/17 [History Confirmed 10/16] Zolpidem TAB* [Ambien TAB*] 5 mg PO BEDTIME PRN 10/16/17 [History Confirmed ] amLODIPine TAB* [Norvasc 5 mg TAB*] 2.5 mg PO DAILY 10/16/17 [History Confirmed 10/16/17] PMH/Surg Hx/FS Hx/Imm Hx Cardiovascular History: Reports: Hx Atrial Fibrillation, Hx Hypertension Respiratory History: Denies: Hx Pleural Effusion GI History: Denies: Hx Gastrointestinal Bleed History: Reports: Hx Benign Prostatic Hyperplasia Musculoskeletal History: Reports: Hx Arthritis Sensory History: Reports: Hx Glaucoma Opthamlomology History: Reports: Hx Glaucoma - Cancer History Cancer Type, Location and Year: lymphoma Hx Chemotherapy: Yes - 2013 Hx Radiation Therapy: Yes - 2013 - Surgical History Surgery Procedure, Year, and Place: 2013 R testicle removed Infectious Disease History: No Infectious Disease History: Denies: Traveled Outside the [place] in Last 30 Days - Family History Known Family History: Positive: Hypertension Negative: Respiratory Disease, Seizure Disorder - Social History Occupation: Retired Lives: With Family Alcohol Use: None Substance Use Type: Reports: None Hx Tobacco Use: No Smoking Status (MU): Never Smoked Tobacco Review of Systems Positive: Fever, Other - trouble ambulating . Negative: Chills Negative: Erythema Negative: Sore Throat Negative: Chest Pain Negative: Shortness Of Breath, Cough Negative: Abdominal Pain, Vomiting, Diarrhea, Nausea Genitourinary: Other - trouble urinating Negative: dysuria, hematuria Musculoskeletal: Negative - back pain Negative: Myalgia, Edema Negative: Rash Neurological: Negative - dizziness Positive: Weakness All Other Systems Reviewed And Are Negative: Yes Physical Exam - Summary Physical Exam Summary: Constitutional: Well-developed, Well-nourished, Alert. (-) Distressed, ill appearing Skin: Warm, Dry HENT: Normocephalic; Atraumatic Eyes: Conjunctiva normal Neck: Musculoskeletal ROM normal neck. (-) JVD, (-) Stridor, (-) Tracheal deviation Cardio: Rhythm regular, rate normal, Heart sounds normal; Intact distal pulses; The pedal pulses are 2+ and symmetric. Radial pulses are 2+ and symmetric. Grade 3 systolic murmur Pulmonary/Chest wall: Effort normal. (-) Respiratory distress, (-) Wheezes, (-) Rales Abd: Soft, (-) Tenderness, (-) Distension, (-) Guarding, (-) Rebound Musculoskeletal: (-) Edema Lymph: (-) Cervical adenopathy Neuro: Alert, Oriented x3 Psych: Mood and affect Normal Triage Information Reviewed: Yes Vital Signs On Initial Exam: Initial Vitals Temp Pulse Resp BP Pulse Ox 100.4 F 114 24 146/82 98 10/16/17 14:10 10/16/17 14:10 10/16/17 14:10 10/16/17 14:10 10/16/17 14:10 Vital Signs Reviewed: Yes Diagnostics - Vital Signs Vital Signs Temp Pulse Resp BP Pulse Ox 10/16/17 14:37 102.3 F 97 24 146/82 99 10/16/17 14:10 100.4 F 114 24 146/82 98 - Laboratory Lab Results: Lab Results 10/16/17 10/16/17 10/16/17 Range/Units 14:31 14:31 14:31 WBC 9.9 (3.5-10.8) 10^3/ul RBC 3.65 L (4.0-5.4) 10^6/ul Hgb 10.4 L (14.0-18.0) g/dl Hct 30 L (42-52) % MCV 83 (80-94) fL MCH 29 (27-31) pg MCHC 34 (31-36) g/dl RDW 15 (10.5-15) % Plt Count 210 (150-450) 10^3/ul MPV 7.4 (7.4-10.4) um3 Neut % (Auto) 72.9 (38-83) % Lymph % (Auto) 15.9 L (25-47) % [place] % (Auto) 10.6 H (0-7) % Eos % (Auto) 0.4 (0-6) % Baso % (Auto) 0.2 (0-2) % Absolute Neuts (auto) 7.2 (1.5-7.7) 10^3/ul Absolute Lymphs (auto) 1.6 (1.0-4.8) 10^3/ul Absolute Monos (auto) 1.1 H (0-0.8) 10^3/ul Absolute Eos (auto) 0 (0-0.6) 10^3/ul Absolute Basos (auto) 0 (0-0.2) 10^3/ul Absolute Nucleated RBC 0 10^3/ul Nucleated RBC % 0 Sodium 130 L (139-145) mmol/L Potassium 4.2 (3.5-5.0) mmol/L Chloride 98 L (101-111) mmol/L Carbon Dioxide 25 (22-32) mmol/L Anion Gap 7 (2-11) mmol/L BUN 25 H (6-24) mg/dL Creatinine 1.23 H (0.67-1.17) mg/dL Est GFR ( Amer) 72.3 (>60) Est GFR (Non-Af Amer) 56.2 (>60) BUN/Creatinine Ratio 20.3 H (8-20) Glucose 151 H (70-100) mg/dL Lactic Acid 1.2 (0.5-2.0) mmol/L Calcium 8.5 L (8.6-10.3) mg/dL Magnesium 1.7 L (1.9-2.7) mg/dL Total Bilirubin 0.50 (0.2-1.0) mg/dL AST 13 (13-39) U/L ALT 11 (7-52) U/L Alkaline Phosphatase 42 (34-104) U/L Troponin I 0.01 (<0.04) ng/mL Total Protein 7.0 (6.4-8.9) g/dL Albumin 3.5 (3.2-5.2) g/dL Globulin 3.5 (2-4) g/dL Albumin/Globulin Ratio 1.0 (1-3) TSH Pending Result Diagrams: 10/16/17 14:31 10/16/17 14:31 Lab Statement: Any lab studies that have been ordered have been reviewed, and results considered in the medical decision making process. - EKG 14:47 Cardiac Rate: Other Rate EKG Rhythm: Atrial Fibrillation - at 91 BPM EKG Interpretation: No STEMI Complex Multi-Symp Course/Dx Assessment/Plan: This patient is a 81 year old M BIBA to [facility] accompanied by his with a chief complaint of weakness that began mid-day today. Pts states while they were shopping today he was unable to walk to the store due to the weakness. The patient rates the pain 0/10 in severity. Patient reports fever of 102F, trouble ambulating, and trouble urinating. Patient denies cough, n/v/d, and back pain. The patient catheterizes himself 3 times a day to urinate. Pt has just seen Dr. Simmons for prostate issues. An EKG reveals afib, no STEMI. Test results with no significant abnormalities. UA was positive for UTI. In the ED course the patient was given abx, Tylenol, and IV fluids. 1630 We discussed patient care with Dr. Simmons and they recommended admitting the patient. Patient will be admitted. The patient is agreeable with this plan. - Diagnoses Differential Diagnoses/HQI/PQRI: Urinary Tract Infection, Other - PNA Provider Diagnoses: Prostatitis, Urinary retention, Sepsis - Physician Notifications Discussed Care Of Patient With: Hoang Merrill Time Discussed With Above Provider: 16:41 Instructed by Provider To: Admit As Inpatient Discharge - Sign-Out/Discharge Documenting (check all that apply): Discharge/Admit/Transfer - admitted - Discharge Plan Condition: Fair Disposition: ADMITTED TO [facility] Referrals: Nini Jean Baptiste MD [Primary Care Provider] - The documentation as recorded by the Theodora amos Gabriel accurately reflects the service I personally performed and the decisions made by , Anshu Cueto MD.
[2017-10-17] MEDS: PTO:Cyclosporine 0.05% OPHTH (NF) 0.4 ML VIAL BOTH EYES SCH (20:42)
[2017-10-17] MEDS ORDERED: Zosyn per Pharmacy* NOTE FOLLOW UP SCH (22:00)
[2017-10-17] MEDS ORDERED: Piperacillin/Tazobac ADVAN(*) 3.375 GM in NS 0.9% 100 ML* 100 ML IVPB ONE (22:15)
[2017-10-17] MEDS: Furosemide TAB* 20 MG PO SCH (22:47)
[2017-10-18] MEDS: ZOSYN 3.375 GM Q8H per EXTENDED INFUSION IVPB SCH ×6 (04:22→18:03)
[2017-10-18 05:25] LABS: ABS Basophils 0 10^3/ul (0-0.2); ABS Eosinophils 0.1 10^3/ul (0-0.6); ABS Monocytes 1.4 10^3/ul (0-0.8); ABS Nucleated RBC 0 10^3/ul; Eosinophil % 0.7 % (0-6); Hematocrit 29 % (42-52); Hemoglobin 9.6 g/dl (14.0-18.0); Lymphocyte % 17.6 % (25-47); Mean Corpuscular HGB Conc 34 g/dl (31-36); Mean Corpuscular Hemoglobin 28 pg (27-31); Mean Corpuscular Volume 83 fL (80-94); Mean Platelet Volume 7.7 um3 (7.4-10.4); Nucleated Red Blood Cells % 0; Platelet Count 180 10^3/ul (150-450); Red Blood Count 3.42 10^6/ul (4.0-5.4); Red Cell Distribution Width 15 % (10.5-15); White Blood Count 11.6 10^3/ul (3.5-10.8)
[2017-10-18 05:44] LABS: Uric Acid 3.2 mg/dL (4.4-7.6)
[2017-10-18] MEDS: Levothyroxine TAB* 50 MCG TAB PO SCH (06:23)
[2017-10-18] MEDS: PTO:Cyclosporine 0.05% OPHTH (NF) 0.4 ML VIAL BOTH EYES SCH ×2 (09:01→20:34)
[2017-10-18] MEDS: PTO:Brimonidine/Timolol 0.2%/0.5% OPTH(NF) SOL 5 ML BOTH EYES SCH ×2 (09:01→20:35)
[2017-10-18] MEDS: Metoprolol Succinate XL TAB* 50 MG PO SCH (09:03)
[2017-10-18] MEDS: Furosemide TAB* 20 MG PO SCH (09:03)
[2017-10-18] MEDS: Finasteride TAB* 5 MG PO SCH (09:03)
[2017-10-18] MEDS: Cholecalciferol TAB* 1000 UNITS PO SCH (09:03)
[2017-10-18] MEDS: Apixaban* 5 MG TAB PO SCH ×2 (09:03→20:33)
[2017-10-18] MEDS: Tamsulosin CAP* 0.4 MG PO SCH (09:04)
[2017-10-18] MEDS: GLUCOSAMINE PO SCH (09:04)
[2017-10-18] MEDS: Atorvastatin* 10 MG TAB PO SCH (17:03)
--- NOTE | 2017-10-18 18:34 | PN ---
Hospitalist Progress Note Date of Service: 10/18/17 Pt seen and examined. Meds and labs reviewed. ROS: Denied MICHAELS/dizziness, F/C, N/V, CP, SOB, increased cough, sputum production , abd pain, diarrhea, constipation, dysuria, myalgias, arthralgias, throat pain , and new skin lesions. The rest of the 14 point ROS are unremarkable. PHYSICAL EXAM: GEN APPEARANCE: Awake, not in acute distress HEENT: NC/AT, PERRLA, moist oral mucosa, (-) throat erythema NECK: Soft, supple, (-) cervical LAD, (-)JVD HEART: S1S2, holosystolic murmur WNL, RRR, No RG CHEST: CTA, BL, GAE, No W/R/R ABD: Soft, ND/NT, NABS 4x Q EXT: No C/C/E SKIN: Warm to touch PSYCH: No active psychosis, hallucinations, depression, SI/HI ASSESSMENT AND PLAN: #UTI (urinary tract infection), K. PNA: -Has been self- cathing TID and getting intermittent procedures with Dr. Simmons. Mcarthur placed in ED. -D/C Zosyn and place pt on Levaquin D#4/7 days #CHF exacerbation, mild: -Continue low dose Lasix - EF 55-60% , mild-mod mVR,TVT. mod pHTN started lasix 20mg po daily for likely few days. #Hyponatremia, hypervolemic: -Reviewed history since admission and it seems pt presented with CHF exacerbation, as evidenced with FENa =1.13 not consistent with pre-renal or intra-renal cause -Will Increase Lasix to 40 mg qday -Continue watchful waiting #Physical deconditioning -Continue PT. #Atrial fibrillation -Eliquis. metoprolol 50 daily. # Hypothyroid -Continue levothyroxine. #Dispo: -Will likely need STR
[2017-10-18] MEDS: Levofloxacin 500 MG IVPREMIX(* 500 MG/100 ML BAG IVPB SCH (20:32)
[2017-10-19] MEDS: Zolpidem TAB* 5 MG PO PRN (00:14)
[2017-10-19] MEDS: ZOSYN 3.375 GM Q8H per EXTENDED INFUSION IVPB SCH ×6 (02:40→18:10)
[2017-10-19] MEDS: Levothyroxine TAB* 50 MCG TAB PO SCH (06:07)
[2017-10-19 06:15] LABS: ABS Basophils 0 10^3/ul (0-0.2); ABS Eosinophils 0.1 10^3/ul (0-0.6); ABS Lymphocytes 1.7 10^3/ul (1.0-4.8); ABS Monocytes 1.1 10^3/ul (0-0.8); ABS Neutrophils 6.9 10^3/ul (1.5-7.7); ABS Nucleated RBC 0 10^3/ul; Eosinophil % 1.1 % (0-6); Hematocrit 28 % (42-52); Hemoglobin 9.8 g/dl (14.0-18.0); Lymphocyte % 17.2 % (25-47); Mean Corpuscular HGB Conc 35 g/dl (31-36); Mean Corpuscular Hemoglobin 29 pg (27-31); Mean Corpuscular Volume 83 fL (80-94); Mean Platelet Volume 7.8 um3 (7.4-10.4); Nucleated Red Blood Cells % 0; Platelet Count 178 10^3/ul (150-450); Red Blood Count 3.38 10^6/ul (4.0-5.4); Red Cell Distribution Width 15 % (10.5-15); White Blood Count 9.8 10^3/ul (3.5-10.8)
[2017-10-19 06:29] LABS: EGFR Non-African American 68.2 (>60)
[2017-10-19] MEDS ORDERED: Furosemide TAB* 40 MG PO SCH (09:00)
[2017-10-19] MEDS ORDERED: NS 0.9% 1000 ML* 1,000 ML IV SCH ×2 (09:15→15:45)
[2017-10-19] MEDS: PTO:Cyclosporine 0.05% OPHTH (NF) 0.4 ML VIAL BOTH EYES SCH ×3 (09:18→21:47)
[2017-10-19] MEDS: Tamsulosin CAP* 0.4 MG PO SCH (09:18)
[2017-10-19] MEDS: Finasteride TAB* 5 MG PO SCH (09:18)
[2017-10-19] MEDS: Cholecalciferol TAB* 1000 UNITS PO SCH (09:18)
[2017-10-19] MEDS: Apixaban* 5 MG TAB PO SCH ×2 (09:18→21:32)
[2017-10-19] MEDS: Metoprolol Succinate XL TAB* 50 MG PO SCH (09:18)
[2017-10-19] MEDS: PTO:Brimonidine/Timolol 0.2%/0.5% OPTH(NF) SOL 5 ML BOTH EYES SCH ×2 (09:29→21:32)
[2017-10-19] MEDS: GLUCOSAMINE PO SCH (09:29)
[2017-10-19] MEDS: Atorvastatin* 10 MG TAB PO SCH (15:44)
--- NOTE | 2017-10-19 15:45 | PN ---
Hospitalist Progress Note Date of Service: 10/19/17 Pt seen and examined. Meds and labs reviewed. No O/N issues. Spoke with both pt and at bedside to summarize current hospitalization and discuss plan. ROS: Denied MICHAELS/dizziness, F/C, N/V, CP, SOB, increased cough, sputum production , abd pain, diarrhea, constipation, dysuria, myalgias, arthralgias, throat pain , and new skin lesions. The rest of the 14 point ROS are unremarkable. PHYSICAL EXAM: GEN APPEARANCE: Awake, not in acute distress HEENT: NC/AT, PERRLA, moist oral mucosa, (-) throat erythema NECK: Soft, supple, (-) cervical LAD, (-)JVD HEART: S1S2, holosystolic murmur WNL, RRR, No RG CHEST: CTA, BL, GAE, No W/R/R ABD: Soft, ND/NT, NABS 4x Q EXT: No C/C/E SKIN: Warm to touch PSYCH: No active psychosis, hallucinations, depression, SI/HI ASSESSMENT AND PLAN: #UTI (urinary tract infection), K. oxytoca: -Has been self- cathing TID and getting intermittent procedures with Dr. Simmons. Mcarthur placed in ED. -Continue Levaquin D#5/7 days #CHF exacerbation, mild, resolved: -Held Lasix and will repeat CM at 1600 today to see it can be stopped or will need continuation - EF 55-60% , mild-mod mVR,TVT. mod pHTN #Hyponatremia, chronic; usually ~132 (per ): -Reviewed history since admission and it seems pt presented with CHF exacerbation, as evidenced with FENa =1.13 not consistent with pre-renal or intra-renal cause, however, this likely has clinically resolved since it further decreased with increased dose of diuresis. -Place pt on IVF @75 cc/hr -Continue watchful waiting #Physical deconditioning -Continue PT. #Atrial fibrillation -Eliquis. metoprolol 50 daily. # Hypothyroid -Continue levothyroxine. #Dispo: -Will likely need STR
[2017-10-19] MEDS: Levofloxacin 500 MG IVPREMIX(* 500 MG/100 ML BAG IVPB SCH (21:31)
[2017-10-20] MEDS: Zolpidem TAB* 5 MG PO PRN (01:19)
[2017-10-20] MEDS: ZOSYN 3.375 GM Q8H per EXTENDED INFUSION IVPB SCH ×4 (02:50→11:51)
[2017-10-20 05:39] LABS: ABS Basophils 0 10^3/ul (0-0.2); ABS Eosinophils 0.1 10^3/ul (0-0.6); ABS Lymphocytes 1.4 10^3/ul (1.0-4.8); ABS Neutrophils 5.7 10^3/ul (1.5-7.7); ABS Nucleated RBC 0 10^3/ul; Eosinophil % 1.6 % (0-6); Hematocrit 30 % (42-52); Hemoglobin 9.9 g/dl (14.0-18.0); Lymphocyte % 17.3 % (25-47); Mean Corpuscular HGB Conc 33 g/dl (31-36); Mean Corpuscular Hemoglobin 28 pg (27-31); Mean Corpuscular Volume 83 fL (80-94); Mean Platelet Volume 7.8 um3 (7.4-10.4); Nucleated Red Blood Cells % 0; Platelet Count 199 10^3/ul (150-450); Red Cell Distribution Width 15 % (10.5-15); White Blood Count 8.3 10^3/ul (3.5-10.8)
[2017-10-20] MEDS: Levothyroxine TAB* 50 MCG TAB PO SCH (06:01)
[2017-10-20] MEDS: PTO:Brimonidine/Timolol 0.2%/0.5% OPTH(NF) SOL 5 ML BOTH EYES SCH ×2 (09:48→20:45)
[2017-10-20] MEDS: Finasteride TAB* 5 MG PO SCH (09:49)
[2017-10-20] MEDS: Cholecalciferol TAB* 1000 UNITS PO SCH (09:49)
[2017-10-20] MEDS: GLUCOSAMINE PO SCH (09:49)
[2017-10-20] MEDS: Tamsulosin CAP* 0.4 MG PO SCH (09:49)
[2017-10-20] MEDS: Metoprolol Succinate XL TAB* 50 MG PO SCH (09:49)
[2017-10-20] MEDS: Apixaban* 5 MG TAB PO SCH ×2 (09:49→20:44)
[2017-10-20] MEDS: PTO:Cyclosporine 0.05% OPHTH (NF) 0.4 ML VIAL BOTH EYES SCH ×2 (09:49→20:46)
[2017-10-20] MEDS: Atorvastatin* 10 MG TAB PO SCH (17:42)
--- NOTE | 2017-10-20 17:56 | PN ---
Hospitalist Progress Note Date of Service: 10/20/17 Pt seen and examined. Meds and labs reviewed. Saw pt and at bedside and updated both of them in regards to the plan described below. However, late afternoon, I was paged by RN and pt mentions she has not seen a doctor and would like to ask questions. As soon as I arrived, the remembered me and exclaimed Oh him and acknowledged the plan has been discussed and pt was seen earlier. Furthermore, she appears to forget certain details of the conversation as to why her remains hospitalized. ROS: Denied MICHAELS/dizziness, F/C, N/V, CP, SOB, increased cough, sputum production , abd pain, diarrhea, constipation, dysuria, myalgias, arthralgias, throat pain , and new skin lesions. The rest of the 14 point ROS are unremarkable. PHYSICAL EXAM: GEN APPEARANCE: Awake, not in acute distress HEENT: NC/AT, PERRLA, moist oral mucosa, (-) throat erythema NECK: Soft, supple, (-) cervical LAD, (-)JVD HEART: S1S2 WNL, RRR, No MRG CHEST: CTA, BL, GAE, No W/R/R ABD: Soft, ND/NT, NABS 4x Q EXT: No C/C/E SKIN: Warm to touch PSYCH: No active psychosis, hallucinations, depression, SI/HI ASSESSMENT AND PLAN: #UTI (urinary tract infection), K. oxytoca: -Has been self- cathing TID and getting intermittent procedures with Dr. Simmons. Mcarthur placed in ED. -Continue Levaquin D#6/7 days -Will D/C Mcarthur tonight in anticipation of pending D/C #CHF exacerbation, mild, resolved: -Continue to hold Lasix given hyponatremia - EF 55-60% , mild-mod mVR,TVT. mod pHTN #Hyponatremia, chronic; usually ~132 (per ): -Reviewed history since admission and it seems pt presented with CHF exacerbation, as evidenced with FENa =1.13 not consistent with pre-renal or intra-renal cause, however, this likely has clinically resolved since it further decreased with increased dose of diuresis. -Continue to hold diuretics and continue fluid restriction as ordered -Consider re-starting Lasix in a few days #Physical deconditioning -Continue PT. #Atrial fibrillation -Eliquis. metoprolol 50 daily. # Hypothyroid -Continue levothyroxine. #Dispo: -Will likely need STR
[2017-10-20] MEDS: Levofloxacin 500 MG IVPREMIX(* 500 MG/100 ML BAG IVPB SCH (20:42)
[2017-10-21] MEDS: Levothyroxine TAB* 50 MCG TAB PO SCH (05:26)
[2017-10-21 06:36] LABS: ABS Basophils 0 10^3/ul (0-0.2); ABS Eosinophils 0.2 10^3/ul (0-0.6); ABS Lymphocytes 1.5 10^3/ul (1.0-4.8); ABS Neutrophils 6.2 10^3/ul (1.5-7.7); ABS Nucleated RBC 0 10^3/ul; Hematocrit 32 % (42-52); Hemoglobin 10.8 g/dl (14.0-18.0); Lymphocyte % 16.9 % (25-47); Mean Corpuscular HGB Conc 34 g/dl (31-36); Mean Corpuscular Hemoglobin 28 pg (27-31); Mean Corpuscular Volume 83 fL (80-94); Mean Platelet Volume 7.9 um3 (7.4-10.4); Nucleated Red Blood Cells % 0.1; Platelet Count 230 10^3/ul (150-450); Red Blood Count 3.83 10^6/ul (4.0-5.4); Red Cell Distribution Width 15 % (10.5-15)
[2017-10-21 06:38] LABS: EGFR Non-African American 74.8 (>60)
[2017-10-21] MEDS: PTO:Brimonidine/Timolol 0.2%/0.5% OPTH(NF) SOL 5 ML BOTH EYES SCH (07:40)
[2017-10-21] MEDS: Apixaban* 5 MG TAB PO SCH (07:42)
[2017-10-21] MEDS: Metoprolol Succinate XL TAB* 50 MG PO SCH (07:42)
[2017-10-21] MEDS: GLUCOSAMINE PO SCH (07:42)
[2017-10-21] MEDS: Cholecalciferol TAB* 1000 UNITS PO SCH (07:42)
[2017-10-21] MEDS: Finasteride TAB* 5 MG PO SCH (07:43)
[2017-10-21] MEDS: Tamsulosin CAP* 0.4 MG PO SCH (07:43)
[2017-10-21] MEDS: PTO:Cyclosporine 0.05% OPHTH (NF) 0.4 ML VIAL BOTH EYES SCH (07:43)
[2017-10-21 07:52] VITALS: BP 125/72
--- NOTE | 2017-10-21 08:18 | PN ---
Subjective Date of Service: 10/21/17 Interval History: Pt is feeling ok. He states his breathing is normal. He has no pain. No swelling in his legs. He denies any abdominal complaints. Objective Active Medications: Apixaban (Eliquis*) 5 mg PO BID [facility] Last Admin: 10/21/17 07:42 Dose: 5 mg Atorvastatin Calcium (Lipitor*) 5 mg PO 1700 [facility] Last Admin: 10/20/17 17:42 Dose: 5 mg Brimonidine/Timolol (Combigan Ophth (Nf)) 1 drop BOTH EYES BID [facility] PRN Reason: Protocol Last Admin: 10/21/17 07:40 Dose: 2 drop Cholecalciferol (Vitamin D Tab*) 1,000 units PO DAILY [facility] Last Admin: 10/21/17 07:42 Dose: 1,000 units Cyclosporine (Restasis 0.05% Ophth) 1 drop BOTH EYES BID [facility] PRN Reason: Protocol Last Admin: 10/21/17 07:43 Dose: 1 drop Finasteride (Proscar Tab*) 5 mg PO DAILY [facility] PRN Reason: Protocol Last Admin: 10/21/17 07:43 Dose: 5 mg Glucosamine Sulfate (Glucosamine Cap (Nf)) 1 cap PO DAILY [facility] PRN Reason: Protocol Last Admin: 10/21/17 07:42 Dose: 1 cap Levofloxacin/Dextrose (Levaquin 500 Mg Ivpremix(*)) 500 mg in 100 mls @ 100 mls /hr IVPB Q24H [facility] Last Admin: 10/20/17 20:42 Dose: 100 mls/hr Lactulose (Lactulose*) 15 ml PO DAILY PRN PRN Reason: CONSTIPATION Levothyroxine Sodium (Synthroid Tab*) 50 mcg PO 0600 [facility] Last Admin: 10/21/17 05:26 Dose: 50 mcg Metoprolol Succinate (Toprol Xl Tab*) 50 mg PO DAILY [facility] Last Admin: 10/21/17 07:42 Dose: 50 mg Tamsulosin HCl (Flomax Cap*) 0.4 mg PO DAILY [facility] Last Admin: 10/21/17 07:43 Dose: 0.4 mg Zolpidem Tartrate (Ambien Tab*) 5 mg PO BEDTIME PRN PRN Reason: SLEEP Last Admin: 10/20/17 01:19 Dose: 5 mg Vital Signs - 8 hr 10/21/17 10/21/1710/21/18 03:55 07:44 07:52 Temperature 97.8 F 97.3 F Pulse Rate 80 81 Respiratory 24 18 16 Rate Blood Pressure 159/71 125/72 (mmHg) O2 Sat by Pulse 98 98 Oximetry Oxygen Devices in Use Now: Nasal Cannula Appearance: Elderly male sitting on the edge of the bed, eating breakfast, NAD Eyes: No Scleral Icterus Ears/Nose/Mouth/Throat: Mucous Membranes Moist Respiratory: Symmetrical Chest Expansion and Respiratory Effort, Clear to Auscultation - diminished breath sounds at the bases Cardiovascular: RRR, No Edema, - - III/ systolic murmur heard best at the LUSB Abdominal: NL Sounds; No Tenderness; No Distention Extremities: No Clubbing, Cyanosis Skin: No Rash or Ulcers, No Nodules or Sclerosis Neurological: Alert and Oriented x 3 Result Diagrams: 10/21/17 05:48 10/21/17 05:48 Additional Lab and Data: Laboratory Results - last 24 hr 10/17/17 10/17/17 05:25 05:25 WBC 15.2 H RBC 3.66 L Hgb 10.2 L Hct 31 L MCV 83 MCH 28 MCHC 34 RDW 15 Plt Count 201 MPV 7.6 Neut % (Auto) Not Reportable Lymph % (Auto) Not Reportable [place] % (Auto) Not Reportable Eos % (Auto) Not Reportable Baso % (Auto) Not Reportable Absolute Neuts (auto) Not Reportable Absolute Lymphs (auto) Not Reportable Absolute Monos (auto) Not Reportable Absolute Eos (auto) Not Reportable Absolute Basos (auto) Not Reportable Absolute Nucleated RBC Not Reportable Immature Gran % 3 Neutrophils % 80 Band Neutrophils % 2 Lymphocytes % 8 L Monocytes % 9 H Eosinophils % 0 Basophils % 0 Myelocytes % 1 Nucleated RBC % Not Reportable Abs Neuts (Manual) 12.2 H Abs Lymphs (Manual) 1.2 Abs Monocytes (Manual) 1.4 H Absolute Eos (Manual) 0 Abs Basophils (Manual) 0 Toxic Granulation 1+ Normal RBC Morphology Normal Sodium 129 L Potassium 3.8 Chloride 103 Carbon Dioxide 23 Anion Gap 3 BUN 18 Creatinine 1.03 Est GFR ( Amer) 88.7 Est GFR (Non-Af Amer) 69.0 BUN/Creatinine Ratio 17.5 Glucose 126 H Calcium 8.3 L Magnesium 2.1 Assess/Plan/Problems-Billing Mr De León is an 81 yo [place] speaking male who has a PMHx significant for moderate , recent chronic hypoxic respiratory failure thought 2/2 pulmonary 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 - Patient Problems (1) UTI (urinary tract infection) Current Visit: Yes Status: Acute Comment: The patient was septic by sepsis- 2 criteria on admissions secondary to K oxytoca UTI. Today is D#6/7. Will send Rx for one more day of Abx to complete treatment. Sepsis has resolved. (2) Hyponatremia Current Visit: Yes Status: Acute Code(s): E87.1 - HYPO-OSMOLALITY AND HYPONATREMIA SNOMED Code(s): 36839135 Comment: Chronic and at baseline. Follow intermittently as outpatient. (3) Atrial fibrillation Current Visit: Yes Status: Acute Code(s): I48.91 - UNSPECIFIED ATRIAL FIBRILLATION SNOMED Code(s): 70461161 Comment: Sounded regular on exam today. Will continue metoprolol 50mg daily and eliquis. (4) Aortic stenosis Current Visit: Yes Status: Acute Code(s): I35.0 - NONRHEUMATIC AORTIC (VALVE ) STENOSIS SNOMED Code(s): 15690437 Comment: Moderate on echo this admission. (5) Hypothyroid Current Visit: Yes Status: Acute Code(s): E03.9 - HYPOTHYROIDISM, UNSPECIFIED SNOMED Code(s): 06445920 Comment: TSH in good range. Continue synthroid at current dose. (6) DVT prophylaxis Current Visit: Yes Status: Acute Code(s): KJJ6527 - SNOMED Code(s): 263188542 Comment: Eliquis (7) DNR (do not resuscitate) Current Visit: Yes Status: Acute Status and Disposition: medicine inpatient.
--- NOTE | 2017-10-21 09:58 | DS ---
CC: Dr. Jean Baptiste; Dr. Simmons; [facility] * DISCHARGE SUMMARY: DATE OF ADMISSION: 10/16/17 DATE OF DISCHARGE: 10/21/17 PRIMARY CARE PROVIDER: Dr. Jean Batpiste. CUSTOMER CARE CONSULTANT: Dr. Street. ADVICE NURSE: Dr. Mittal. UROLOGIST: Dr. Simmons. PRINCIPAL DIAGNOSES: 1. Sepsis secondary to Klebsiella oxytoca urinary tract infection. 2. Fall, likely secondary to urinary tract infection. 3. Chronic hyponatremia. SECONDARY DIAGNOSES: 1. Atrial fibrillation. 2. History of lymphoma. 3. Benign prostatic hypertrophy requiring straight catheterization 3 times daily. 4. Moderate aortic stenosis. 5. Coronary artery disease. 6. Possible pulmonary fibrosis secondary to asbestos exposure. DISCHARGE MEDICATIONS: 1. Amlodipine 2.5 mg p.o. daily. 2. Restasis 1 drop to both eyes twice daily. 3. Ambien 5 mg p.o. q.h.s. p.r.n. insomnia. 4. Flomax 0.4 mg p.o. daily. 5. Simvastatin 10 mg p.o. daily. 6. Lovaza 1 cap p.o. daily. 7. Metoprolol XL 50 p.o. daily. 8. Levothyroxine 50 micrograms p.o. daily. 9. Lactulose 15 mL p.o. daily p.r.n. constipation. 10. Glucosamine 1 cap p.o. daily. 11. Avodart 0.5 mg p.o. daily. 12. Combigan 1 drop to both eyes twice daily. 13. Eliquis 5 mg p.o. twice daily. 14. Vitamin D 1000 units p.o. daily. 15. Levofloxacin 500 mg p.o. daily x2 doses. HOSPITAL COURSE: Mr. De León is an 81-year-old male with a history of chronic atrial fibrillation on Eliquis, BPH required straight catheterization 3 times daily, moderate aortic stenosis, coronary artery disease, and chronic hypoxic respiratory failure possibly secondary to pulmonary fibrosis secondary to asbestos exposure, who presented to the emergency room when he could not get out of the car unassisted. His tried to help him get out of the car. However, she was unable to do so and assisted him to the ground. [facility] was contacted and the patient was noted to have a fever of 102. His urinalysis looked abnormal. He was admitted for sepsis secondary to urinary tract infection. The patient ultimately grew Klebsiella oxytoca from his urine. He had initially received ceftriaxone and converted over to Zosyn, subsequently changed to levofloxacin. The patient's sepsis has resolved. His vital signs are stable and he has been afebrile since 10/19/17. On admission, the patient was also found to be hyponatremic. However, the patient is chronically hyponatremic and has been so dating back to June 2016. His sodium level remained relatively stable throughout the course of his hospitalization. There was concern, after he received IV fluids in the emergency room, that the patient may have developed some mild diastolic CHF and he did get started on Lasix. This has since been discontinued. At this point, the patient will continue on a heart healthy diet. 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 The patient was maintained on his usual home medication regimen. He did have a Mcarthur catheter placed during this admission, which will be discontinued. The patient will need to continue with straight catheterization 3 times daily. FOLLOWUP CONCERNS: The patient is being discharged to [facility] today, 10/21. ACTIVITY LEVEL: As tolerated. DIET: Heart healthy. CONDITION ON DISCHARGE: Stable. The patient is to have a basic metabolic panel obtained on 10/24/17. Again, he has to straight cath 3 times daily and as needed. TIME SPENT: Thirty-five minutes were spent discharging this patient. [id number]/[facility] #: [id number] MTDD
== END 2017-10-21 12:30 | DRG 871 ==
LOC: ED 14:07 → MEDTELE 16:41
PROVIDERS: ADMIT Internal Medicine; ATTEND Hospitalist
DX: A41.9 Sepsis, unspecified organism (principal); I50.33 Acute on chronic diastolic (congestive) heart failure; N39.0 Urinary tract infection, site not specified; E87.1 Hypo-osmolality and hyponatremia; J96.11 Chronic respiratory failure with hypoxia; E22.2 Syndrome of inappropriate secretion of antidiuretic hormone; B96.1 Klebsiella pneumoniae [K. pneumoniae] as the cause of diseases classified elsewhere; J61 Pneumoconiosis due to asbestos and other mineral fibers; I48.91 Unspecified atrial fibrillation; N40.0 Benign prostatic hyperplasia without lower urinary tract symptoms; I35.0 Nonrheumatic aortic (valve) stenosis; I25.10 Atherosclerotic heart disease of native coronary artery without angina pectoris; Z66 Do not resuscitate; M81.0 Age-related osteoporosis without current pathological fracture; Z99.81 Dependence on supplemental oxygen; Z79.01 Long term (current) use of anticoagulants; Z79.899 Other long term (current) drug therapy; Z82.3 Family history of stroke; Z80.3 Family history of malignant neoplasm of breast; Z85.72 Personal history of non-Hodgkin lymphomas
CPT/HCPCS: 36415; 71045; 80048; 80053; 81003; 81015; 82533; 82570; 83605; 83735; 83880; 83935; 84300; 84443; 84484; 84550; 85025; 87040; 87077; 87086; 87186; 93005; 93306; 99284; A9270-GY; G8978-GP-CI; G8978-GP-CJ; G8979-GP-CI; G8980-GP-CI; J0696; J1956; J2543; J3475

== ENCOUNTER 2020-02-02 22:52 | Inpatient (IN) ==
[2020-02-03 00:43] LABS: ABS Basophils 0.1 10^3/ul (0-0.2); ABS Eosinophils 0.2 10^3/ul (0-0.6); ABS Lymphocytes 1.1 10^3/ul (1.0-4.8); ABS Monocytes 0.9 10^3/ul (0-0.8); ABS Neutrophils 4.6 10^3/ul (1.5-7.7); Eosinophil % 2.4 %; Hematocrit 30 % (42-52); Hemoglobin 10.3 g/dL (14.0-18.0); Lymphocyte % 15.6 %; Mean Corpuscular HGB Conc 35 g/dL (31-36); Mean Corpuscular Hemoglobin 29 pg (27-31); Mean Corpuscular Volume 82 fL (80-94); Mean Platelet Volume 8.1 fL (7.4-10.4); Nucleated Red Blood Cells % 0.1; Platelet Count 233 10^3/uL (150-450); Red Blood Count 3.62 10^6 /uL (4.18-5.48); Red Cell Distribution Width 16 % (10-15); White Blood Count 6.8 10^3/uL (3.5-10.8)
[2020-02-03 00:45] LABS: INR 1.99 (0.82-1.09)
[2020-02-03] MEDS ORDERED: cefTRIAXone 1 gm/50 mL NS BAG 1 GM/50 ML BAG IV ONE ×2 (00:50→01:37)
[2020-02-03 00:59] LABS: Alcohol, S < 10 mg/dL (<10)
[2020-02-03 01:01] LABS: ALT 13 U/L (7-52); Albumin 3.7 g/dL (3.2-5.2); Albumin/Globulin Ratio 1.1 (1-3); Alkaline Phosphatase 65 U/L (34-104); BUN/Creatinine Ratio 22.1 (8-20); Blood Urea Nitrogen 21 mg/dL (6-24); CO2 Carbon Dioxide 25 mmol/L (22-32); Calcium 8.8 mg/dL (8.6-10.3); Chloride 91 mmol/L (101-111); EGFR Non-African American 75.2 (>60); Globulin 3.5 g/dL (2-4); Glucose 104 mg/dL (70-100); Sodium 120 mmol/L (135-145); Total Protein 7.2 g/dL (6.4-8.9); Troponin I 0.02 ng/mL (<0.03)
[2020-02-03 01:01] LABS: Urine Appearance Clear; Urine Bilirubin Negative (Negative); Urine Blood Negative (Negative); Urine Color Yellow; Urine Glucose Negative (Negative); Urine Ketones Negative (Negative); Urine Nitrite Negative (Negative); Urine Protein Negative (Negative); Urine Specific Gravity 1.014 (1.010-1.030); Urine Urobilinogen Negative (Negative)
[2020-02-03 01:14] LABS: TSH Ultra Thyroid Stim Horm 3.57 mcIU/mL (0.34-5.60)
[2020-02-03 02:26] LABS: AST 17 U/L (13-39); Anion Gap 4 mmol/L (2-11); Potassium 4.5 mmol/L (3.5-5.0)
[2020-02-03] MEDS ORDERED: NS 0.9% 1000 ml BAG 1,000 ML IV SCH ×2 (03:15→06:54)
[2020-02-03] MEDS ORDERED: Ondansetron 4 mg VIAL 2 MG/ML 2 ml VIAL IV PRN (03:25)
[2020-02-03 05:11] LABS: BUN/Creatinine Ratio 18.9 (8-20); Calcium 8.9 mg/dL (8.6-10.3); EGFR Non-African American 75.2 (>60); Potassium 4.3 mmol/L (3.5-5.0)
[2020-02-03] MEDS ORDERED: Metoprolol Tartrate 5 mg VIAL 5 ml VIAL (1 mg/ml) IV PRN (06:02)
[2020-02-03 06:05] LABS: Troponin I 0.03 ng/mL (<0.03)
[2020-02-03] MEDS ORDERED: Diltiazem IV push/loading dose 5 MG/ML 5 ML vial (25 mg) IV SLOW PU ONE (06:50)
[2020-02-03] MEDS ORDERED: Furosemide 20 mg/2 ml IV VIAL IV ONE (07:08)
[2020-02-03] MEDS ORDERED: Furosemide 20 mg/2 ml IV VIAL ONE (07:11)
[2020-02-03 08:23] LABS: Urine Appearance Clear; Urine Bilirubin Negative (Negative); Urine Blood 2+ (Negative); Urine Color Straw; Urine Glucose Negative (Negative); Urine Ketones Negative (Negative); Urine Nitrite Negative (Negative); Urine Protein Negative (Negative); Urine Specific Gravity 1.009 (1.010-1.030); Urine Urobilinogen Negative (Negative)
[2020-02-03 09:38] LABS: Urine Bacteria Absent (Absent); Urine Red Blood Cell 3+(>10/hpf) (Absent); Urine White Blood Cell Absent (Absent)
[2020-02-03] MEDS: CMCS:Simvastatin 10 mg TAB (NF) PO SCH (10:41)
[2020-02-03 10:49] LABS: BUN/Creatinine Ratio 17.9 (8-20); Calcium 8.5 mg/dL (8.6-10.3); EGFR African American 80.2 (>60); EGFR Non-African American 66.2 (>60); Potassium 4.3 mmol/L (3.5-5.0)
[2020-02-03] MEDS ORDERED: Norepinephrine 16MCG/ML IVPRE 4,000 MCG/250 ML BAG IV SCH (11:00)
[2020-02-03] MEDS: Timolol 0.5% OPTH.SOL BTL BOTH EYES SCH ×2 (11:36→21:23)
[2020-02-03] MEDS ORDERED: Hydrocortisone INJ 100 MG/2ML 2 ML VIAL ONE (17:58)
[2020-02-03] MEDS ORDERED: Hydrocortisone INJ 100 MG/2ML 2 ML VIAL IV ONE (18:00)
[2020-02-03] MEDS ORDERED: Hydrocortisone INJ 100 MG VIAL IV ONE (18:00)
[2020-02-04] MEDS: cefTRIAXone 1 gm/50 mL NS BAG 1 GM/50 ML BAG IVPB SCH ×2 (02:36→23:05)
[2020-02-04] MEDS: Hydrocortisone INJ 100 MG/2ML 2 ML VIAL IV SCH ×2 (03:40→11:57)
[2020-02-04 04:48] LABS: ABS Basophils 0.1 10^3/ul (0-0.2); ABS Lymphocytes 0.6 10^3/ul (1.0-4.8); ABS Monocytes 0.5 10^3/ul (0-0.8); ABS Neutrophils 14.1 10^3/ul (1.5-7.7); Hematocrit 30 % (42-52); Hemoglobin 10.1 g/dL (14.0-18.0); Lymphocyte % 3.8 %; Mean Corpuscular HGB Conc 34 g/dL (31-36); Mean Corpuscular Hemoglobin 28 pg (27-31); Mean Corpuscular Volume 83 fL (80-94); Mean Platelet Volume 7.4 fL (7.4-10.4); Platelet Count 204 10^3/uL (150-450); Red Blood Count 3.59 10^6 /uL (4.18-5.48); Red Cell Distribution Width 16 % (10-15); White Blood Count 15.2 10^3/uL (3.5-10.8)
[2020-02-04 05:05] LABS: Albumin 3.2 g/dL (3.2-5.2); BUN/Creatinine Ratio 18.6 (8-20); Calcium 8.7 mg/dL (8.6-10.3); EGFR African American 83.8 (>60); EGFR Non-African American 69.2 (>60); Globulin 3.3 g/dL (2-4); Magnesium 1.9 mg/dL (1.9-2.7); Total Bilirubin 0.6 mg/dL (0.2-1.0); Total Protein 6.5 g/dL (6.4-8.9)
[2020-02-04] MEDS ORDERED: Magnesium Sulfate IV 1GM/100ML 1 GM/100 ML BAG IV ONE (05:53)
[2020-02-04] MEDS: CMCS:Simvastatin 10 mg TAB (NF) PO SCH (08:35)
[2020-02-04] MEDS: Timolol 0.5% OPTH.SOL BTL BOTH EYES SCH ×2 (08:35→22:09)
[2020-02-04] MEDS ORDERED: Senna TAB 8.6 mg TAB PO PRN (16:01)
[2020-02-04] MEDS ORDERED: Polyethylene Glycol 3350 17 GM PACKET PO PRN (16:01)
[2020-02-04] MEDS ORDERED: Magnesium Sulfate 2 gm BAG 2 GM/50 ML BAG IVPB ONE (21:32)
[2020-02-04] MEDS: Magnesium Hydroxide LIQ 30 ML UDC PO SCH (22:09)
[2020-02-05 06:59] LABS: ABS Lymphocytes 0.8 10^3/ul (1.0-4.8); ABS Monocytes 1.1 10^3/ul (0-0.8); ABS Neutrophils 12.8 10^3/ul (1.5-7.7); Hematocrit 28 % (42-52); Hemoglobin 9.7 g/dL (14.0-18.0); Lymphocyte % 5.7 %; Mean Corpuscular HGB Conc 34 g/dL (31-36); Mean Corpuscular Hemoglobin 28 pg (27-31); Mean Corpuscular Volume 83 fL (80-94); Mean Platelet Volume 7.9 fL (7.4-10.4); Platelet Count 209 10^3/uL (150-450); Red Cell Distribution Width 16 % (10-15); White Blood Count 14.8 10^3/uL (3.5-10.8)
[2020-02-05 07:19] LABS: ALT 14 U/L (7-52); AST 18 U/L (13-39); Albumin 3.2 g/dL (3.2-5.2); Alkaline Phosphatase 56 U/L (34-104); Anion Gap 5 mmol/L (2-11); Blood Urea Nitrogen 27 mg/dL (6-24); CO2 Carbon Dioxide 29 mmol/L (22-32); Calcium 8.7 mg/dL (8.6-10.3); Chloride 95 mmol/L (101-111); EGFR African American 100.7 (>60); EGFR Non-African American 83.2 (>60); Globulin 3.3 g/dL (2-4); Glucose 113 mg/dL (70-100); Magnesium 2.8 mg/dL (1.9-2.7); Potassium 3.9 mmol/L (3.5-5.0); Sodium 129 mmol/L (135-145); Total Protein 6.5 g/dL (6.4-8.9)
[2020-02-05] MEDS: CMCS:Simvastatin 10 mg TAB (NF) PO SCH (07:50)
[2020-02-05] MEDS: Magnesium Hydroxide LIQ 30 ML UDC PO SCH (07:50)
[2020-02-05] MEDS: Timolol 0.5% OPTH.SOL BTL BOTH EYES SCH ×2 (07:51→21:07)
[2020-02-05] MEDS ORDERED: Potassium Chloride LIQUID 20 MEQ/15 ML LIQUID PO ONE (14:05)
[2020-02-05 14:23] LABS: Total Iron Binding Capacity 239 mcg/dL (250-450); Transferrin 171 mg/dL (203-362)
[2020-02-05 14:25] LABS: % Iron Saturation 8 % (15-55); Iron < 20 ug/dL (50-212); Unsaturated Iron Binding < 224 ug/dL
[2020-02-05 14:34] LABS: Troponin I 0.04 ng/mL (<0.03)
[2020-02-05 14:45] LABS: Ferritin 129.5 ng/mL (24-336)
[2020-02-05] MEDS ORDERED: Furosemide 20 mg/2 ml IV VIAL IV SLOW PU ONE (16:12)
[2020-02-05] MEDS: cefTRIAXone 1 gm/50 mL NS BAG 1 GM/50 ML BAG IVPB SCH (21:23)
[2020-02-06 06:49] LABS: ABS Monocytes 0.7 10^3/ul (0-0.8); ABS Neutrophils 8.3 10^3/ul (1.5-7.7); Eosinophil % 0.4 %; Hematocrit 28 % (42-52); Lymphocyte % 10.1 %; Mean Corpuscular HGB Conc 35 g/dL (31-36); Mean Corpuscular Hemoglobin 29 pg (27-31); Mean Corpuscular Volume 82 fL (80-94); Mean Platelet Volume 7.4 fL (7.4-10.4); Platelet Count 245 10^3/uL (150-450); Red Blood Count 3.45 10^6 /uL (4.18-5.48); Red Cell Distribution Width 16 % (10-15); White Blood Count 10.1 10^3/uL (3.5-10.8)
[2020-02-06 07:05] LABS: Albumin 3.4 g/dL (3.2-5.2); BUN/Creatinine Ratio 36.1 (8-20); Calcium 8.7 mg/dL (8.6-10.3); EGFR African American 106.3 (>60); EGFR Non-African American 87.8 (>60); Globulin 3.3 g/dL (2-4); Magnesium 2.3 mg/dL (1.9-2.7); Potassium 4.2 mmol/L (3.5-5.0); Total Bilirubin 0.6 mg/dL (0.2-1.0); Total Protein 6.7 g/dL (6.4-8.9)
[2020-02-06] MEDS: CMCS:Simvastatin 10 mg TAB (NF) PO SCH (07:26)
[2020-02-06] MEDS: Timolol 0.5% OPTH.SOL BTL BOTH EYES SCH ×3 (07:26→22:32)
[2020-02-06] MEDS ORDERED: Iron Sucrose 200 MG in NS 0.9% 100 ml BAG 100 ML IVPB ONE (12:30)
[2020-02-06 20:27] LABS: Calcium 8.9 mg/dL (8.6-10.3); EGFR African American 66.3 (>60); EGFR Non-African American 54.8 (>60); Potassium 4.2 mmol/L (3.5-5.0)
[2020-02-06] MEDS: cefTRIAXone 1 gm/50 mL NS BAG 1 GM/50 ML BAG IVPB SCH (23:21)
[2020-02-07 06:31] LABS: ABS Eosinophils 0.1 10^3/ul (0-0.6); ABS Lymphocytes 1.1 10^3/ul (1.0-4.8); ABS Monocytes 0.7 10^3/ul (0-0.8); ABS Neutrophils 6.3 10^3/ul (1.5-7.7); Eosinophil % 0.8 %; Hematocrit 32 % (42-52); Hemoglobin 10.9 g/dL (14.0-18.0); Lymphocyte % 13.5 %; Mean Corpuscular HGB Conc 34 g/dL (31-36); Mean Corpuscular Hemoglobin 28 pg (27-31); Mean Corpuscular Volume 83 fL (80-94); Mean Platelet Volume 7.6 fL (7.4-10.4); Platelet Count 259 10^3/uL (150-450); Red Blood Count 3.87 10^6 /uL (4.18-5.48); Red Cell Distribution Width 16 % (10-15); White Blood Count 8.2 10^3/uL (3.5-10.8)
[2020-02-07 06:49] LABS: Anion Gap 4 mmol/L (2-11); BUN/Creatinine Ratio 26.7 (8-20); Blood Urea Nitrogen 24 mg/dL (6-24); CO2 Carbon Dioxide 29 mmol/L (22-32); Calcium 9.1 mg/dL (8.6-10.3); Chloride 99 mmol/L (101-111); EGFR African American 96.8 (>60); Glucose 105 mg/dL (70-100); Potassium 4.2 mmol/L (3.5-5.0); Sodium 132 mmol/L (135-145)
[2020-02-07] MEDS: CMCS:Simvastatin 10 mg TAB (NF) PO SCH (08:49)
[2020-02-07] MEDS: Timolol 0.5% OPTH.SOL BTL BOTH EYES SCH ×2 (08:49→20:24)
[2020-02-07 11:26] LABS: Troponin I 0.04 ng/mL (<0.03)
[2020-02-07] MEDS: cefTRIAXone 1 gm/50 mL NS BAG 1 GM/50 ML BAG IVPB SCH (23:21)
[2020-02-08 05:55] LABS: ABS Basophils 0.1 10^3/ul (0-0.2); ABS Eosinophils 0.2 10^3/ul (0-0.6); ABS Lymphocytes 1.2 10^3/ul (1.0-4.8); ABS Monocytes 0.9 10^3/ul (0-0.8); ABS Neutrophils 6.8 10^3/ul (1.5-7.7); Hematocrit 33 % (42-52); Hemoglobin 10.9 g/dL (14.0-18.0); Lymphocyte % 13.5 %; Mean Corpuscular HGB Conc 34 g/dL (31-36); Mean Corpuscular Hemoglobin 28 pg (27-31); Mean Corpuscular Volume 83 fL (80-94); Mean Platelet Volume 7.7 fL (7.4-10.4); Platelet Count 280 10^3/uL (150-450); Red Blood Count 3.91 10^6 /uL (4.18-5.48); Red Cell Distribution Width 16 % (10-15); White Blood Count 9.1 10^3/uL (3.5-10.8)
[2020-02-08 06:20] LABS: ALT 25 U/L (7-52); AST 21 U/L (13-39); Albumin 3.5 g/dL (3.2-5.2); Alkaline Phosphatase 67 U/L (34-104); Anion Gap 5 mmol/L (2-11); BUN/Creatinine Ratio 28.7 (8-20); Blood Urea Nitrogen 27 mg/dL (6-24); CO2 Carbon Dioxide 26 mmol/L (22-32); Calcium 9.3 mg/dL (8.6-10.3); Chloride 103 mmol/L (101-111); EGFR African American 92.1 (>60); EGFR Non-African American 76.1 (>60); Globulin 3.4 g/dL (2-4); Glucose 93 mg/dL (70-100); Potassium 4.4 mmol/L (3.5-5.0); Sodium 134 mmol/L (135-145); Total Protein 6.9 g/dL (6.4-8.9)
[2020-02-08 06:35] LABS: Troponin I 0.03 ng/mL (<0.03)
[2020-02-08] MEDS: Timolol 0.5% OPTH.SOL BTL BOTH EYES SCH ×2 (08:37→19:53)
[2020-02-08] MEDS: CMCS:Simvastatin 10 mg TAB (NF) PO SCH (08:37)
[2020-02-08] MEDS: Magnesium Hydroxide LIQ 30 ML UDC PO PRN (16:52)
[2020-02-09] MEDS: Timolol 0.5% OPTH.SOL BTL BOTH EYES SCH ×2 (09:30→20:14)
[2020-02-09] MEDS: CMCS:Simvastatin 10 mg TAB (NF) PO SCH (09:34)
[2020-02-10] MEDS: CMCS:Simvastatin 10 mg TAB (NF) PO SCH (08:49)
[2020-02-10] MEDS: Timolol 0.5% OPTH.SOL BTL BOTH EYES SCH ×2 (08:49→21:26)
[2020-02-10] MEDS: Magnesium Hydroxide LIQ 30 ML UDC PO PRN (14:25)
[2020-02-11] MEDS: CMCS:Simvastatin 10 mg TAB (NF) PO SCH (08:28)
[2020-02-11] MEDS: Timolol 0.5% OPTH.SOL BTL BOTH EYES SCH (08:28)
[2020-02-11 14:25] VITALS: BP 132/68
== END 2020-02-11 14:43 | DRG 643 ==
LOC: ED 22:52 → MEDTELE 02-03 04:04 → ICU 02-03 08:34 → MEDTELE 02-04 12:29
PROVIDERS: ADMIT Internal Medicine; ATTEND Internal Medicine

== ENCOUNTER 2020-06-10 08:04 | Inpatient (IN) ==
[2020-06-10 08:52] LABS: ABS Lymphocytes 0.5 10^3/ul (1.0-4.8); ABS Monocytes 0.6 10^3/ul (0-0.8); Eosinophil % 0.2 %; Hematocrit 30 % (42-52); Hemoglobin 9.8 g/dL (14.0-18.0); Lymphocyte % 6.5 %; Mean Corpuscular HGB Conc 33 g/dL (31-36); Mean Corpuscular Hemoglobin 28 pg (27-31); Mean Corpuscular Volume 84 fL (80-94); Mean Platelet Volume 8.3 fL (7.4-10.4); Nucleated Red Blood Cells % 0.1; Platelet Count 128 10^3/uL (150-450); Red Blood Count 3.53 10^6 /uL (4.18-5.48); Red Cell Distribution Width 17 % (10-15); White Blood Count 7.1 10^3/uL (3.5-10.8)
[2020-06-10 09:04] LABS: ALT 25 U/L (7-52); AST 21 U/L (13-39); Albumin 3.5 g/dL (3.2-5.2); Alkaline Phosphatase 78 U/L (34-104); Anion Gap 4 mmol/L (2-11); BUN/Creatinine Ratio 31.6 (8-20); Blood Urea Nitrogen 31 mg/dL (6-24); C Reactive Protein 60.16 mg/L (<8.01); CO2 Carbon Dioxide 27 mmol/L (22-32); Calcium 9.2 mg/dL (8.6-10.3); Chloride 104 mmol/L (101-111); Creatine Kinase 67 U/L (10-223); EGFR African American 87.7 (>60); EGFR Non-African American 72.5 (>60); Globulin 3.6 g/dL (2-4); Glucose 102 mg/dL (70-100); Magnesium 1.9 mg/dL (1.9-2.7); Potassium 4.3 mmol/L (3.5-5.0); Sodium 135 mmol/L (135-145); Total Protein 7.1 g/dL (6.4-8.9)
[2020-06-10 09:05] LABS: Troponin I 0.02 ng/mL (<0.03)
[2020-06-10 09:17] LABS: Alcohol, S < 10 mg/dL (<10)
[2020-06-10] MEDS ORDERED: Magnesium Hydroxide LIQ 30 ML UDC PO PRN (11:27)
[2020-06-10 12:17] LABS: TSH Ultra Thyroid Stim Horm 3.41 mcIU/mL (0.34-5.60)
[2020-06-10 12:19] LABS: Free T4 1.26 ng/dL (0.61-1.12)
[2020-06-10 14:09] LABS: Urine Appearance Clear; Urine Bilirubin Negative (Negative); Urine Blood Negative (Negative); Urine Color Yellow; Urine Glucose Negative (Negative); Urine Ketones Negative (Negative); Urine Nitrite Negative (Negative); Urine Protein Negative (Negative); Urine Specific Gravity 1.016 (1.010-1.030); Urine Urobilinogen Negative (Negative)
[2020-06-10] MEDS: Furosemide 40 mg/4 ml IV VIAL IV SLOW PU SCH (15:46)
[2020-06-10] MEDS ORDERED: Atropine 0.1 MG/ML 10 ml SYR (1 mg) ONE (16:23)
[2020-06-10] MEDS ORDERED: Atropine 0.1 MG/ML 10 ml SYR (1 mg) IV PUSH ONE (16:23)
[2020-06-10 17:54] LABS: Cholesterol 101 mg/dL; HDL Cholesterol 53.9 mg/dL; LDL Cholesterol 39 mg/dL; Triglycerides 42 mg/dL
[2020-06-10 18:10] LABS: Troponin I 0.03 ng/mL (<0.03)
[2020-06-10] MEDS ORDERED: Norepinephrine 16MCG/ML IVPRE 4,000 MCG/250 ML BAG IV ONE (18:21)
[2020-06-10] MEDS: CMC:Brimonidine/Timolol 0.2%/0.5% OPTH(NF) SOL 5 ML BOTH EYES SCH (20:09)
[2020-06-10] MEDS: cefTRIAXone 1 gm/50 mL NS BAG 1 GM/50 ML BAG IVPB SCH (20:09)
[2020-06-10] MEDS: Azithromycin 500 mg/250 ml NS 500 MG/250 ML BAG IVPB SCH (20:43)
[2020-06-10] MEDS: CMC:Cyclosporine 0.05% OPHTH (NF) 0.4 ML VIAL BOTH EYES SCH ×2 (20:43→21:00)
[2020-06-10] MEDS ORDERED: Norepinephrine 16MCG/ML IVPRE 4,000 MCG/250 ML BAG IV SCH (22:00)
[2020-06-10] MEDS ORDERED: Enoxaparin 80 MG/0.8 ML SYR SUBCUT ONE (23:04)
[2020-06-11 04:11] LABS: ABS Lymphocytes 0.6 10^3/ul (1.0-4.8); ABS Monocytes 0.7 10^3/ul (0-0.8); ABS Neutrophils 3.4 10^3/ul (1.5-7.7); Eosinophil % 0.5 %; Hematocrit 27 % (42-52); Hemoglobin 8.9 g/dL (14.0-18.0); Lymphocyte % 12.1 %; Mean Corpuscular HGB Conc 33 g/dL (31-36); Mean Corpuscular Hemoglobin 28 pg (27-31); Mean Corpuscular Volume 84 fL (80-94); Mean Platelet Volume 8.8 fL (7.4-10.4); Nucleated Red Blood Cells % 0.1; Platelet Count 122 10^3/uL (150-450); Red Blood Count 3.21 10^6 /uL (4.18-5.48); Red Cell Distribution Width 17 % (10-15); White Blood Count 4.7 10^3/uL (3.5-10.8)
[2020-06-11 04:27] LABS: Anion Gap 6 mmol/L (2-11); BUN/Creatinine Ratio 25.7 (8-20); Blood Urea Nitrogen 28 mg/dL (6-24); CO2 Carbon Dioxide 26 mmol/L (22-32); Calcium 8.6 mg/dL (8.6-10.3); Chloride 107 mmol/L (101-111); EGFR African American 77.6 (>60); EGFR Non-African American 64.1 (>60); Glucose 76 mg/dL (70-100); Potassium 4.2 mmol/L (3.5-5.0); Sodium 139 mmol/L (135-145)
[2020-06-11] MEDS: CMC:Cyclosporine 0.05% OPHTH (NF) 0.4 ML VIAL BOTH EYES SCH ×2 (08:25→20:26)
[2020-06-11] MEDS: CMC:Brimonidine/Timolol 0.2%/0.5% OPTH(NF) SOL 5 ML BOTH EYES SCH ×2 (08:26→20:25)
[2020-06-11] MEDS: Furosemide 40 mg/4 ml IV VIAL IV SLOW PU SCH (08:33)
[2020-06-11] MEDS: CMC:Simvastatin 10 mg TAB (NF) PO SCH (09:26)
[2020-06-11] MEDS: Cholecalciferol (VIT D3) 1,000 unit TAB PO SCH (09:28)
[2020-06-11 11:37] LABS: Magnesium 1.8 mg/dL (1.9-2.7); Phosphorus 4.1 mg/dL (2.5-5.0)
[2020-06-11] MEDS: Levothyroxine 100 MCG/5 ML VIAL IV SCH (11:38)
[2020-06-11 12:53] LABS: Troponin I 0.06 ng/mL (<0.03)
[2020-06-11] MEDS: cefTRIAXone 1 gm/50 mL NS BAG 1 GM/50 ML BAG IVPB SCH (16:43)
[2020-06-11] MEDS: Azithromycin 500 mg/250 ml NS 500 MG/250 ML BAG IVPB SCH (17:48)
[2020-06-12] MEDS: Levothyroxine 100 MCG/5 ML VIAL IV SCH (05:40)
[2020-06-12 05:56] LABS: ABS Lymphocytes 0.7 10^3/ul (1.0-4.8); ABS Monocytes 0.8 10^3/ul (0-0.8); ABS Neutrophils 3.6 10^3/ul (1.5-7.7); Eosinophil % 0.4 %; Hematocrit 27 % (42-52); Lymphocyte % 13.9 %; Mean Corpuscular HGB Conc 33 g/dL (31-36); Mean Corpuscular Hemoglobin 28 pg (27-31); Mean Corpuscular Volume 84 fL (80-94); Mean Platelet Volume 8.6 fL (7.4-10.4); Nucleated Red Blood Cells % 0.1; Platelet Count 120 10^3/uL (150-450); Red Blood Count 3.27 10^6 /uL (4.18-5.48); Red Cell Distribution Width 17 % (10-15); White Blood Count 5.1 10^3/uL (3.5-10.8)
[2020-06-12 06:14] LABS: BUN/Creatinine Ratio 26.5 (8-20); Calcium 8.7 mg/dL (8.6-10.3); EGFR African American 71.5 (>60); EGFR Non-African American 59.1 (>60); Potassium 3.8 mmol/L (3.5-5.0)
[2020-06-12] MEDS: Cholecalciferol (VIT D3) 1,000 unit TAB PO SCH (10:09)
[2020-06-12] MEDS: CMC:Brimonidine/Timolol 0.2%/0.5% OPTH(NF) SOL 5 ML BOTH EYES SCH ×2 (10:10→22:45)
[2020-06-12] MEDS: cefTRIAXone 1 gm/50 mL NS BAG 1 GM/50 ML BAG IVPB SCH ×2 (10:11→22:45)
[2020-06-12] MEDS: CMC:Simvastatin 10 mg TAB (NF) PO SCH ×2 (10:18→14:35)
[2020-06-12] MEDS: CMC:Cyclosporine 0.05% OPHTH (NF) 0.4 ML VIAL BOTH EYES SCH ×2 (11:31→22:45)
[2020-06-12] MEDS: Enoxaparin 80 MG/0.8 ML SYR SUBCUT SCH (17:48)
[2020-06-12] MEDS: Azithromycin 500 mg/250 ml NS 500 MG/250 ML BAG IVPB SCH (17:49)
[2020-06-13] MEDS: Levothyroxine 100 MCG/5 ML VIAL IV SCH (05:38)
[2020-06-13] MEDS: Enoxaparin 80 MG/0.8 ML SYR SUBCUT SCH (05:41)
[2020-06-13 08:20] LABS: BUN/Creatinine Ratio 34.7 (8-20); Calcium 9.2 mg/dL (8.6-10.3); EGFR Non-African American 75.2 (>60); Magnesium 2.1 mg/dL (1.9-2.7); Potassium 3.8 mmol/L (3.5-5.0)
[2020-06-13] MEDS: cefTRIAXone 1 gm/50 mL NS BAG 1 GM/50 ML BAG IVPB SCH ×2 (09:17→23:19)
[2020-06-13] MEDS: Cholecalciferol (VIT D3) 1,000 unit TAB PO SCH (09:19)
[2020-06-13] MEDS: CMC:Simvastatin 10 mg TAB (NF) PO SCH (09:28)
[2020-06-13] MEDS: CMC:Brimonidine/Timolol 0.2%/0.5% OPTH(NF) SOL 5 ML BOTH EYES SCH ×2 (09:29→23:32)
[2020-06-13] MEDS: CMC:Cyclosporine 0.05% OPHTH (NF) 0.4 ML VIAL BOTH EYES SCH ×2 (09:30→23:32)
[2020-06-13] MEDS: Azithromycin 500 mg/250 ml NS 500 MG/250 ML BAG IVPB SCH (17:19)
[2020-06-14 06:18] LABS: BUN/Creatinine Ratio 34.4 (8-20); Calcium 9.5 mg/dL (8.6-10.3); EGFR African American 89.9 (>60); EGFR Non-African American 74.3 (>60)
[2020-06-14 08:53] LABS: ABS Eosinophils 0.1 10^3/ul (0-0.6); ABS Lymphocytes 1.1 10^3/ul (1.0-4.8); ABS Monocytes 0.8 10^3/ul (0-0.8); ABS Neutrophils 2.8 10^3/ul (1.5-7.7); Eosinophil % 1.3 %; Hematocrit 31 % (42-52); Hemoglobin 10.2 g/dL (14.0-18.0); Lymphocyte % 22.4 %; Mean Corpuscular HGB Conc 33 g/dL (31-36); Mean Corpuscular Hemoglobin 28 pg (27-31); Mean Corpuscular Volume 85 fL (80-94); Mean Platelet Volume 8.6 fL (7.4-10.4); Nucleated Red Blood Cells % 0.7; Platelet Count 123 10^3/uL (150-450); Red Cell Distribution Width 18 % (10-15); White Blood Count 4.7 10^3/uL (3.5-10.8)
[2020-06-14 09:14] LABS: INR 1.67 (0.82-1.09)
[2020-06-14] MEDS: cefTRIAXone 1 gm/50 mL NS BAG 1 GM/50 ML BAG IVPB SCH ×2 (09:57→22:13)
[2020-06-14] MEDS: CMC:Brimonidine/Timolol 0.2%/0.5% OPTH(NF) SOL 5 ML BOTH EYES SCH ×2 (10:05→22:32)
[2020-06-14] MEDS: Cholecalciferol (VIT D3) 1,000 unit TAB PO SCH (11:53)
[2020-06-14] MEDS: CMC:Simvastatin 10 mg TAB (NF) PO SCH (11:54)
[2020-06-14] MEDS: CMC:Cyclosporine 0.05% OPHTH (NF) 0.4 ML VIAL BOTH EYES SCH ×2 (11:54→22:32)
[2020-06-14] MEDS ORDERED: NS 0.9% 1000 ml BAG 1,000 ML IV ONE (16:05)
[2020-06-15] MEDS ORDERED: Furosemide 20 mg/2 ml IV VIAL IV SLOW PU ONE (03:46)
[2020-06-15] MEDS: Levothyroxine 100 MCG/5 ML VIAL IV SCH (06:27)
[2020-06-15 06:43] LABS: ABS Lymphocytes 0.8 10^3/ul (1.0-4.8); ABS Monocytes 0.9 10^3/ul (0-0.8); ABS Neutrophils 4.5 10^3/ul (1.5-7.7); ABS Nucleated RBC 0.1 10^3/ul; Eosinophil % 0.7 %; Hematocrit 30 % (42-52); Hemoglobin 9.9 g/dL (14.0-18.0); Lymphocyte % 12.3 %; Mean Corpuscular HGB Conc 33 g/dL (31-36); Mean Corpuscular Hemoglobin 28 pg (27-31); Mean Corpuscular Volume 84 fL (80-94); Mean Platelet Volume 8.5 fL (7.4-10.4); Nucleated Red Blood Cells % 0.9; Platelet Count 126 10^3/uL (150-450); Red Blood Count 3.57 10^6 /uL (4.18-5.48); Red Cell Distribution Width 18 % (10-15); White Blood Count 6.3 10^3/uL (3.5-10.8)
[2020-06-15 06:59] LABS: BUN/Creatinine Ratio 27.5 (8-20); Calcium 9.3 mg/dL (8.6-10.3); EGFR African American 69.5 (>60); EGFR Non-African American 57.4 (>60); Potassium 3.7 mmol/L (3.5-5.0)
[2020-06-15] MEDS ORDERED: D5W 1/4 NS 1000 ml BAG 1,000 ML IV SCH (08:00)
[2020-06-15 08:56] LABS: C Reactive Protein 138.36 mg/L (<8.01)
[2020-06-15] MEDS: cefTRIAXone 1 gm/50 mL NS BAG 1 GM/50 ML BAG IVPB SCH (09:17)
[2020-06-15] MEDS: CMC:Cyclosporine 0.05% OPHTH (NF) 0.4 ML VIAL BOTH EYES SCH ×2 (09:22→20:49)
[2020-06-15] MEDS: CMC:Brimonidine/Timolol 0.2%/0.5% OPTH(NF) SOL 5 ML BOTH EYES SCH ×2 (09:22→19:06)
[2020-06-15] MEDS: Cholecalciferol (VIT D3) 1,000 unit TAB PO SCH (09:22)
[2020-06-15] MEDS: CMC:Simvastatin 10 mg TAB (NF) PO SCH (09:23)
[2020-06-15] MEDS ORDERED: Piperacillin/Tazobac ADVAN 3.375 GM in NS 0.9% 100 ml BAG 100 ML IV ONE (10:40)
[2020-06-15] MEDS ORDERED: Zosyn per Pharmacy NOTE FOLLOW UP SCH (11:00)
[2020-06-15 12:04] LABS: Urine Appearance Cloudy; Urine Bilirubin Negative (Negative); Urine Blood 1+ (Negative); Urine Color Yellow; Urine Glucose Negative (Negative); Urine Ketones Trace (Negative); Urine Nitrite Negative (Negative); Urine Protein Negative (Negative); Urine Specific Gravity 1.011 (1.010-1.030); Urine Urobilinogen Negative (Negative)
[2020-06-15 12:09] LABS: Urine Bacteria Absent (Absent); Urine Red Blood Cell 1+(3-5/hpf) (Absent); Urine Squamous Epithelial Cell Present (Absent); Urine White Blood Cell 2+(11-20/hpf) (Absent)
[2020-06-15 12:50] LABS: BUN/Creatinine Ratio 26.2 (8-20); Calcium 8.9 mg/dL (8.6-10.3); EGFR African American 68.1 (>60); EGFR Non-African American 56.3 (>60); Potassium 3.8 mmol/L (3.5-5.0)
[2020-06-15 14:16] LABS: ABS Eosinophils 0.1 10^3/ul (0-0.6); ABS Neutrophils 4.6 10^3/ul (1.5-7.7); ABS Nucleated RBC 0.1 10^3/ul; Eosinophil % 0.9 %; Hematocrit 31 % (42-52); Hemoglobin 9.9 g/dL (14.0-18.0); Mean Corpuscular HGB Conc 32 g/dL (31-36); Mean Corpuscular Hemoglobin 27 pg (27-31); Mean Corpuscular Volume 85 fL (80-94); Mean Platelet Volume 8.7 fL (7.4-10.4); Nucleated Red Blood Cells % 1.1; Platelet Count 125 10^3/uL (150-450); Red Cell Distribution Width 18 % (10-15); White Blood Count 6.6 10^3/uL (3.5-10.8)
[2020-06-15 14:20] LABS: Albumin 3.1 g/dL (3.2-5.2); Anion Gap 7 mmol/L (2-11); CO2 Carbon Dioxide 32 mmol/L (22-32); Calcium 8.6 mg/dL (8.6-10.3); Chloride 116 mmol/L (101-111); Potassium 3.9 mmol/L (3.5-5.0); Sodium 155 mmol/L (135-145)
[2020-06-15 14:26] LABS: ALT 21 U/L (7-52); AST 28 U/L (13-39); Albumin/Globulin Ratio 0.9 (1-3); Alkaline Phosphatase 78 U/L (34-104); Blood Urea Nitrogen 33 mg/dL (6-24); EGFR African American 68.1 (>60); EGFR Non-African American 56.3 (>60); Globulin 3.5 g/dL (2-4); Glucose 83 mg/dL (70-100); INR 1.75 (0.82-1.09); Total Protein 6.6 g/dL (6.4-8.9)
[2020-06-15 14:30] LABS: Troponin I 0.16 ng/mL (<0.03)
[2020-06-15] MEDS ORDERED: Lactated Ringers 500 ml BAG 500 ML IV ONE (15:24)
[2020-06-15] MEDS: ZOSYN 3.375 GM Q8H per EXTENDED INFUSION IV SCH ×2 (15:47→23:38)
[2020-06-15] MEDS ORDERED: Norepinephrine 16MCG/ML IVPRE 4,000 MCG/250 ML BAG IV SCH ×3 (16:00→22:48)
[2020-06-15 16:16] LABS: Troponin I 0.13 ng/mL (<0.03)
[2020-06-15] MEDS ORDERED: Vancomycin 1,250 MG in NS 0.9% 250 ml 250 ML IVPB ONE (17:30)
[2020-06-15] MEDS ORDERED: Hydrocortisone INJ 250 MG VIAL IV ONE (17:30)
[2020-06-15] MEDS ORDERED: D5W 500 ml BAG 500 ML IV SCH (18:00)
[2020-06-15] MEDS ORDERED: D5W 1000 ml BAG 1,000 ML IV SCH (19:00)
[2020-06-15 22:02] LABS: Troponin I 0.12 ng/mL (<0.03)
[2020-06-15] MEDS: Hydrocortisone INJ 100 MG/2ML 2 ML VIAL IV SCH (23:06)
[2020-06-16] MEDS ORDERED: Rocuronium 50 mg VIAL 10 mg/ml 5 ml VIAL (50 mg) ONE (00:13)
[2020-06-16] MEDS ORDERED: Succinylcholine 200 mg VIAL 20 mg/ml 10 ml VIAL (200 mg) ONE ×2 (00:13→10:03)
[2020-06-16] MEDS ORDERED: Propofol 10 mg/ml 100 ML BTL 100 ML ONE (00:15)
[2020-06-16] MEDS: Phenylephrine IV 50 MG in NS 0.9% 250 ml 245 ML IV SCH ×2 (01:04→06:03)
[2020-06-16 03:49] LABS: Hematocrit 34 % (42-52); Hemoglobin 10.8 g/dL (14.0-18.0); Mean Corpuscular HGB Conc 32 g/dL (31-36); Mean Corpuscular Hemoglobin 28 pg (27-31); Mean Corpuscular Volume 87 fL (80-94); Mean Platelet Volume 8.1 fL (7.4-10.4); Platelet Count 140 10^3/uL (150-450); Red Blood Count 3.88 10^6 /uL (4.18-5.48); Red Cell Distribution Width 18 % (10-15); White Blood Count 10.8 10^3/uL (3.5-10.8)
[2020-06-16] MEDS ORDERED: Lactated Ringers 500 ml BAG 500 ML IV SCH (04:00)
[2020-06-16 04:05] LABS: BUN/Creatinine Ratio 22.1 (8-20); Calcium 8.6 mg/dL (8.6-10.3); EGFR African American 48.8 (>60); EGFR Non-African American 40.3 (>60); Magnesium 2.1 mg/dL (1.9-2.7); Phosphorus 7.1 mg/dL (2.5-5.0); Potassium 4.9 mmol/L (3.5-5.0)
[2020-06-16] MEDS: Hydrocortisone INJ 100 MG/2ML 2 ML VIAL IV SCH (05:01)
[2020-06-16] MEDS: Levothyroxine 100 MCG/5 ML VIAL IV SCH (05:01)
[2020-06-16] MEDS ORDERED: Lactated Ringers 500 ml BAG 500 ML IV ONE ×2 (06:32→10:30)
[2020-06-16] MEDS: ZOSYN 3.375 GM Q8H per EXTENDED INFUSION IV SCH (07:07)
[2020-06-16] MEDS: Cholecalciferol (VIT D3) 1,000 unit TAB PO SCH (07:12)
[2020-06-16] MEDS: CMC:Brimonidine/Timolol 0.2%/0.5% OPTH(NF) SOL 5 ML BOTH EYES SCH (07:13)
[2020-06-16] MEDS: CMC:Cyclosporine 0.05% OPHTH (NF) 0.4 ML VIAL BOTH EYES SCH (07:19)
[2020-06-16] MEDS ORDERED: Enoxaparin 80 MG/0.8 ML SYR SUBCUT SCH (09:00)
[2020-06-16] MEDS ORDERED: Vancomycin 1,250 MG IV x ONCE IVPB SCH (09:00)
[2020-06-16] MEDS ORDERED: Pantoprazole VIAL 40 MG VIAL IV SCH (09:00)
[2020-06-16] MEDS ORDERED: LACTATED RINGERS 500 ML BAG IV ONE (09:25)
[2020-06-16] MEDS ORDERED: Sodium Bicarbonate 8.4% SYR 50 ml SYRINGE IV ONE ×3 (09:42→10:56)
[2020-06-16] MEDS ORDERED: Sodium Bicarbonate 8.4% SYR 50 ml SYRINGE ONE ×2 (09:43→10:37)
[2020-06-16] MEDS ORDERED: Lorazepam PYXIS KEY ONE (10:04)
[2020-06-16] MEDS ORDERED: LORazepam 2 mg VIAL 1 ml ONE (10:04)
[2020-06-16] MEDS ORDERED: fentaNYL 250 mcg/5 ml 50 MCG/ML 5 ml VIAL (250 MCG) ONE (10:05)
[2020-06-16] MEDS ORDERED: Phenylephrine IV 10 MG/ML 1 ml VIAL ONE (10:14)
[2020-06-16] MEDS ORDERED: Sodium Bicarbonate 8.4% VIAL 1 MEQ/ML 50 ml VIAL (50 meq) ONE (10:56)
[2020-06-16 11:36] VITALS: BP 77/56
[2020-06-18] MEDS ORDERED: Vancomycin Trough Check NOTE FOLLOW UP ONE (08:30)
== END 2020-06-16 11:02 | disposition expired | DRG 871 ==
LOC: ED 08:04 → MED 14:55 → ICU 17:16 → MEDTELE 06-12 22:23 → ICU 06-15 12:13
PROVIDERS: ADMIT Internal Medicine; ATTEND Internal Medicine